=== PATIENT | female | born 1960 | race Caucasian/White ===

== ENCOUNTER 2024-04-27 05:35 | Inpatient (IN) | payer OTHER ==
--- OUTSIDE RECORDS SUMMARY | 2024-04-27 05:41 | XMS REPORT | Continuity of Care Document ---
Author Name Unknown Address [address] [facility] [address] [id number] [facility] Address [address] [facility] [address] [place] [address] Care Team Providers Care Deployment Engineer Name Role Phone Marely GUALLPA, Tomasz Primary Care Physic mattie [phone] EbYecenia Rios Attending Clinician [phone] YECENIA HARTLEY Attending Clinician Unavailable Unknown, Attending Attending Clinician Unavailab ALESSANDRA Barrera Attending Clinician Unavailable Alessandra Powell PA-C Attending Clinician [phone] Unknown, Attending Attending Clinician Unavailab Loulou Loya PTA Attending Clinician Unav Titus Devine MD Attending Clinician [phone] TITUS CANALES Attending Clinician Unavailabl jensen Matos PT, Maria D Attending Clinician Un available Sally Jenkins PTA Attending Clinician Unavail able Yovani PT, Annette Mays Attending Clinician Unavail able Jovany Jenkins PTA Attending Clinician Unavaila lazaro Diaz PTA, Alma Attending Clinician Unavail able Doctor Unassigned, [place] Attending Clinician U Nancy San PT Attending Clinician Unavailab mary ann CHENEYP, Yecenia Attending Clinician [phone] Payers Payer Name Policy Type Policy Number Effective Date Expirati on Date Source [facility] [id number] 2021 00:00:00 Problems Condition Name Condition Details Condition Category Status Onset Date Resolution Date Last Treatment Date Treating Clinician Comments Source No known active problems No known active problems Disease [facility] Allergies, Adverse Reactions, Alerts Allergy Name Allergy Type Status Severity Reaction(s) Onset Date Inactive Date Treating Clinician Comments Source NO KNOWN ALLERGIE S Drug Class Active [facility] Social History Social Habit Start Date Stop Date Quantity Comments [facility] 2024-04-12 00:00:00 2024-04-12 00:00:00 [facility] Exposure to SARS-CoV-2 (event) 2022-11-15 00:00:00 2022-11-25 13:11:00 Not sure [facility] Tobacco use and exposure 2022-01-31 00:00:00 2022-01-31 00:00:00 Smokeless tobacco non-user [facility] Sex assigned at 1960 00:00:00 1960 00:00:00 [facility] Smoking Status Start Date Stop Date Source Never smoked tobacco [facility] Medications Ordered Medication Name Filled Medication Name Start Date Stop Date Current Medication? Ordering Clinician Indication Dosage Frequency Signature (SIG) Comments Components Source metformin 1,000 mg tablet 2023-07 00:00: 00 Yes 1mg Iam Cummings fluconazole 100 mg tablet 02-14 00:00: 00 Yes mg Iam Cummings atorvastati n 40 mg tablet 02-14 00:00: 00 Yes mg Iam Cummings hydrochloro thiazide 50 mg tablet 02-14 00:00: 00 Yes mg Iam Cummings amlodipine 5 mg tablet 02-14 00:00: 00 Yes mg Iam Cummings lisinopril 40 mg tablet 02-14 00:00: 00 Yes mg Iam Cummings Janumet 50 mg-1,000 mg tablet 02-14 00:00: 00 Yes mg Iam Cummings Tresiba FlexTouch U-100 insulin 100 unit/mL (3 mL) subcutaneou s pen 02-14 00:00: 00 Yes (3 mL) Iam Cummings cyanocobala min (vit B-12) 1,000 mcg/mL injection solution - 00:00: 00 Yes mcg/mL Iam Cummings fluconazole 150 mg tablet - 00:00: 00 Yes 1mg Iam Cummings hydrochloro thiazide 50 mg tablet -24 00:00: 00 Yes mg Iam Cummings amlodipine 5 mg tablet -24 00:00: 00 Yes mg Iam Cummings Janumet 50 mg-1,000 mg tablet - 00:00: 00 Yes mg Iam Cummings Tresiba FlexTouch U-100 insulin 100 unit/mL (3 mL) subcutaneou s pen -24 00:00: 00 Yes (3 mL) Iam Cummings cyanocobala min (vit B-12) 1,000 mcg/mL injection solution -24 00:00: 00 Yes mcg/mL Iam Cummings lisinopril 40 mg tablet -16 00:00: 00 Yes mg Iam Cummings fluconazole 100 mg tablet -25 00:00: 00 Yes mg Iam Cummings amlodipine 5 mg tablet 0 -24 00:00: 00 Yes mg Iam Cummings lisinopril 40 mg tablet 0 -24 00:00: 00 Yes mg Iam Cummings cyanocobala min (vit B-12) 1,000 mcg/mL injection solution 0 -17 00:00: 00 Yes mcg/mL Iam Cummings doxycycline monohydrate 100 mg capsule -04 00:00: 00 Yes mg Iam Cummings cyanocobala min (vit B-12) 1,000 mcg/mL injection solution 0 -24 00:00: 00 Yes mcg/mL Iam Cummings cefadroxil 500 mg capsule 0 - 00:00: 00 Yes mg Iam Cummings diazepam 5 mg tablet 0 -21 00:00: 00 Yes mg Iam Cummings mupirocin 2 % topical ointment 0 -21 00:00: 00 Yes % Iam Cummings atorvastati n 40 mg tablet -20 00:00: 00 Yes mg Iam Cummings INJECT 1 ML IM EVERY 2 WEEKS 08-15 00:00: 00 Yes 1000 Iam Cummings INJECT 1MG SQ WEEKLY 08-15 00:00: 00 Yes 43 Iam Cummings TAKE 1 TABLET DAILY. 08-15 00:00: 00 Yes 50 Iam Cummings 50 UNITS SUBCUTANEOU S Q PM AND 25 UNITS Q A.M. 08-15 00:00: 00 Yes 100 Iam Cummings AMLODIPINE BESYLATE 5 MG TABS 08-15 00:00: 00 Yes Iam Cummings APPLY A THIN LAYER TO THE AFFECTED AREAS TWICE DAILY 2022-07 0 00:00: 00 Yes Iam Cummings INJECT 1MG SQ WEEKLY 9 00:00: 00 Yes 43 Iam Cummings TAKE 1 TABLET BID 03-16 00:00: 00 Yes 1000 Iam Cummings TAKE 1 TABLET AT BEDTIME. 03-16 00:00: 00 Yes 40 Iam Cummings INJECT 1 ML IM EVERY 2 WEEKS 03-16 00:00: 00 Yes 1000 Iam Cummings HYDROCHLORO THIAZIDE 50 MG TABS 03-16 00:00: 00 Yes Iam Cummings TRESIBA FLEXTOUCH 100 UNIT/ML SOPN 03-16 00:00: 00 Yes 100 Iam Cummings TAKE 1 TABLET DAILY. 03-16 00:00: 00 Yes 40 Iam Cummings INJECT 0.5 ML SUBCUTANEOU SLY WEEKLY. 03-16 00:00: 00 09-18 00:00 :00 No 2505 Iam Cummings TAKE 1 TABLET DAILY. 02-10 00:00: 00 09-18 00:00 :00 No 40 Iam Cummings JANUMET 50-1000 02-09 00:00: 00 Yes Iam Cummings VICTOZA 18 MG/3ML SOPN 02-09 00:00: 00 Yes 18 Iam Cummings bromphenira mine-pseudo ephedrine-D M (BROMFED DM) 2-30-10 mg/5 mL syrup - 00:00: 00 Yes [id number] 5mL Take 5 mL by mouth 3 (three) times daily as needed for Congestion /Allergies . [facility] fluticasone propionate 50 mcg/actuati on nasal spray 11-25 00:00: 00 Yes [id number] 2{spray } Use 2 Sprays in each nostril in the morning. [facility] cetirizine 10 mg tablet 11-25 00:00: 00 Yes [id number] 10mg Take 1 tablet by mouth in the morning. [facility] TAKE 5 ML BY MOUTH THREE TIMES DAILY NEEDED FOR CONGESTION OR ALLERGIES 11-25 00:00: 00 09-18 00:00 :00 No Iam Cummings FLUTICASONE PROPIONATE 50 MCG/ACT S FLUTICASONE PROPIONATE 50 MCG/ACT S MCFP 11-25 00:00: 00 09-18 00:00 :00 No Iam Cummings AZITHROMYCI N 250 MG TABS 11-25 00:00: 00 09-18 00:00 :00 No Iam Cummings TAKE 1 TABLET BY MOUTH EVERY MORNING 11-25 00:00: 00 09-18 00:00 :00 No Iam Angel Emiliano azithromyci n 250 mg tablet 11-25 00:00: 00 12-01 04:59 :00 No [id number] Take 2 tablets by mouth daily for 1 day, THEN 1 tablet daily for 4 days. [facility] INJECT 0.5 ML SUBCUTANEOU SLY WEEKLY. 11-09 00:00: 00 09-18 00:00 :00 No 2505 Iam Cummings 50 UNITS SUBCUTANEOU S Q PM AND 25 UNITS Q A.M. 11-01 00:00: 00 Yes 100 Iam Cummings QUINAPRIL HCL 40 MG TABS 11-01 00:00: 00 Yes 40 Iam Cummings TAKE 1 TABLET EVERY MORNING. 11-01 00:00: 00 09-18 00:00 :00 No 5 Iam Cummings INJECT 1 ML IM EVERY 2 WEEKS 11-01 00:00: 00 09-18 00:00 :00 No 1000 Iam F Emiliano TAKE 1 TABLET DAILY. 11-01 00:00: 00 09-18 00:00 :00 No 50 Iam F Emiliano TAKE 1 TABLET BID 11-01 00:00: 00 09-18 00:00 :00 No 1000 Iam F Emiliano INJECT 0.5-1MG SQ WEEKLY 11-01 00:00: 00 09-18 00:00 :00 No 4 Iam Angel Cummings INJECT 1 MG UNDER THE SKIN DIRECTED 08-13 00:00: 00 09-18 00:00 :00 No 183 Iamluther Cummings TAKE 1 TABLET TWICE DAILY WITH MEALS. 08-13 00:00: 00 09-18 00:00 :00 No [id number] Iam F Emiliano INSULIN GLARGINE-YF GN 100 UNIT/ML S INSULIN GLARGINE-YF GN 100 UNIT/ML S OPN 08-05 00:00: 00 Yes Iamluther Cummings TAKE 1 TABLET DAILY. 08-05 00:00: 00 09-18 00:00 :00 No 40 Iam Angel Cummings TAKE 1 TABLET EVERY MORNING. 08-05 00:00: 00 09-18 00:00 :00 No 5 Iamluther Cummings INJECT 1 ML IM EVERY 2 WEEKS 08-05 00:00: 00 09-18 00:00 :00 No 1000 Iamluther Cummings TAKE 1 TABLET DAILY. 08-05 00:00: 00 09-18 00:00 :00 No 50 Iam Angel Cummings TAKE 1 TABLET BID 08-05 00:00: 00 09-18 00:00 :00 No 1000 Iam Cummings 25 UNITS QAM, 50 UNITS QHS 08-05 00:00: 00 09-18 00:00 :00 No 100 Iamluther Cummings TAKE 1 TABLET AT BEDTIME. 08-05 00:00: 00 09-18 00:00 :00 No 40 Iam F Emiliano CYANOCOBALA MIN 1000 MCG/ML SOLN -04 00:00: 00 Yes 1000 Iam Cummings 25 UNITS QAM, 50 UNITS QHS 2021-07 00:00: 00 09-18 00:00 :00 No Iam Cummings INJECT 1 ML IM EVERY 2 WEEKS 2021-07 2 00:00: 00 09-18 00:00 :00 No Iam Cummings PENICILLIN V POTASSIUM 500 MG TABS 2021-07 00:00: 00 09-18 00:00 :00 No 500 Iam Cummings QUINAPRIL HCL 40 MG TABS 2021-07 00:00: 00 09-18 00:00 :00 No 40 Iam Cummings OZEMPIC (1 MG/DOSE) 4 MG/3ML SOPN 2021-07 00:00: 00 09-18 00:00 :00 No 4 Iam Cummings FLUOROURACI L 5 % CREA 2021-07 00:00: 00 09-18 00:00 :00 No Iam Cummings Dose Unknown 2021-07 00:00: 00 Yes Iam Cummings VALACYCLOVI R HCL 1 GM TABS 2021-07 00:00: 00 Yes Iam Cummings ATORVASTATI N CALCIUM 40 MG TABS 2021-07 00:00: 00 09-18 00:00 :00 No Iam Cummings CYANOCOBALA MIN 1000 MCG/ML SOLN 2021-07 00:00: 00 09-18 00:00 :00 No Iam Cummings AMLODIPINE BESYLATE 5 MG TABS 2021-07- 00:00: 00 09-18 00:00 :00 No Iam Cummings APPLY TO AFFECTED AREAS TWICE DAILY FOR 2 - 3 WEEKS 2021-07- 00:00: 00 09-18 00:00 :00 No Iam Cummings TIZANIDINE HCL 4 MG TABS 2021-07 2-14 00:00: 00 09-18 00:00 :00 No Iam Cummings Dose Unknown 2021-07 2 00:00: 00 09-18 00:00 :00 No Iam Cummings PENICILLIN VK 500MG TABLETS 2021-07 2-14 00:00: 00 09-18 00:00 :00 No Iam Cummings TAKE 1 TABLET BID 2021-07 0-26 00:00: 00 09-18 00:00 :00 No 1000 Iam Cummings TAKE 1 TABLET AT BEDTIME. 04-14 00:00: 00 09-18 00:00 :00 No 40 Iam Cummings QUINAPRIL HCL 40 MG TABS 04-14 00:00: 00 09-18 00:00 :00 No 40 Iam Cummings liraglutide (VICTOZA 3-ROSANA SC) 01-31 11:57: 19 Yes inject under the skin. [facility] valACYclovi r (VALTREX) 1 gram tablet 01-31 00:00: 00 02-08 04:59 :00 No [id number] 1g Take 1 tablet by mouth in the morning and 1 tablet at noon and 1 tablet in the evening. Do all this for 7 days. [facility] Victoza 2-Rosana 0.6 mg/0.1 mL (18 mg/3 mL) subcutaneou s pen injector 01-28 00:00: 00 Yes (18 mg/3 mL) Iam Cummings Lantus Solostar U-100 Insulin 100 unit/mL (3 mL) subcutaneou s pen 01-28 00:00: 00 Yes (3 mL) Iam Cummings hydrochloro thiazide 50 mg tablet 01-28 00:00: 00 Yes 1mg Iam Cummings amlodipine 5 mg tablet 01-28 00:00: 00 Yes 1mg Iam Cummings atorvastati n 40 mg tablet 01-28 00:00: 00 Yes 1mg Iam Cummings quinapril 40 mg tablet 01-28 00:00: 00 Yes 1mg Iam Cummings Glumetza 1,000 mg tablet,exte nded release 01-28 00:00: 00 Yes 1mg Iam Cummings duloxetine 30 mg capsule,del ayed release 01-28 00:00: 00 Yes 1mg Iam Cummings cyanocobala min (vit B-12) 1,000 mcg/mL injection solution 01-28 00:00: 00 Yes 1mcg/mL Iam Cummings Victoza 2-Rosana 0.6 mg/0.1 mL (18 mg/3 mL) subcutaneou s pen injector 01-28 00:00: 00 No (18 mg/3 mL) Lantus Solostar U-100 Insulin 100 unit/mL (3 mL) subcutaneou s pen 01-28 00:00: 00 No (3 mL) hydrochloro thiazide 50 mg tablet 01-28 00:00: 00 No 1mg amlodipine 5 mg tablet 01-28 00:00: 00 No 1mg atorvastati n 40 mg tablet 01-28 00:00: 00 No 1mg quinapril 40 mg tablet 01-28 00:00: 00 No 1mg Glumetza 1,000 mg tablet,exte nded release 01-28 00:00: 00 No 1mg Dose Unknown 01-28 00:00: 00 No cyanocobala min (vit B-12) 1,000 mcg/mL injection solution 01-28 00:00: 00 No 1mcg/mL diclofenac 50 mg EC tablet 01-14 00:00: 00 Yes 50mg Take 50 mg by mouth every 8 (eight) hours as needed. [facility] TIZANIDINE HCL 4 MG TABS 01-14 00:00: 00 Yes 4 Iam Cummings Victoza 2-Rosana 0.6 mg/0.1 mL (18 mg/3 mL) subcutaneou s pen injector 01-08 00:00: 00 Yes (18 mg/3 mL) Iam Cummings Lantus Solostar U-100 Insulin 100 unit/mL (3 mL) subcutaneou s pen 01-08 00:00: 00 Yes (3 mL) Iam Cummings atorvastati n 40 mg tablet 01-08 00:00: 00 Yes 1mg Iam Cummings amlodipine 5 mg tablet 01-08 00:00: 00 Yes 1mg Iam Cummings hydrochloro thiazide 50 mg tablet 01-08 00:00: 00 Yes 1mg Iam Cummings quinapril 40 mg tablet 01-08 00:00: 00 Yes 1mg Iam Cummings Victoza 2-Rosana 0.6 mg/0.1 mL (18 mg/3 mL) subcutaneou s pen injector 01-08 00:00: 00 No (18 mg/3 mL) Lantus Solostar U-100 Insulin 100 unit/mL (3 mL) subcutaneou s pen 01-08 00:00: 00 No (3 mL) atorvastati n 40 mg tablet 01-08 00:00: 00 No 1mg amlodipine 5 mg tablet 01-08 00:00: 00 No 1mg hydrochloro thiazide 50 mg tablet 01-08 00:00: 00 No 1mg quinapril 40 mg tablet 01-08 00:00: 00 No 1mg Dose Unknown 01-08 00:00: 00 No Lantus Solostar U-100 Insulin 100 unit/mL (3 mL) subcutaneou s pen 01-08 00:00: 00 No (3 mL) atorvastati n 40 mg tablet 01-08 00:00: 00 No 1mg amlodipine 5 mg tablet 01-08 00:00: 00 No 1mg hydrochloro thiazide 50 mg tablet 01-08 00:00: 00 No 1mg quinapril 40 mg tablet 01-08 00:00: 00 No 1mg cyanocobala min 1,000 mcg/mL injection 01-07 00:00: 00 Yes Danielle leggett [facility] duloxetine 30 mg capsule,del ayed release 11-10 00:00: 00 Yes 1mg Iam Cummings duloxetine 30 mg capsule,del ayed release 2022-0 4-26 00:00: 00 No 1mg Dose Unknown 0 4- 00:00: 00 No Dose Unknown 0 4-06 00:00: 00 Yes Iam Cummings Dose Unknown 0 4-06 00:00: 00 Yes Iam Cummings Dose Unknown 0 4-06 00:00: 00 No Dose Unknown 0 4-06 00:00: 00 No Dose Unknown 0 4-06 00:00: 00 No Dose Unknown 0 4-06 00:00: 00 No Dose Unknown 0 3- 00:00: 00 Yes Iam Cummings Dose Unknown 0 3- 00:00: 00 Yes Iam Cummings Dose Unknown 0 3 00:00: 00 No Dose Unknown 0 3- 00:00: 00 No Dose Unknown 0 3 00:00: 00 No Dose Unknown 0 3- 00:00: 00 No Victoza 2-Rosana 0.6 mg/0.1 mL (18 mg/3 mL) subcutaneou s pen injector 0 10-06 00:00: 00 Yes (18 mg/3 mL) Iam Cummings quinapril 40 mg tablet 0 10-06 00:00: 00 Yes 1mg Iam Cummings hydrochloro thiazide 50 mg tablet 0 10-06 00:00: 00 Yes 1mg Iam Cummings amlodipine 5 mg tablet 0 10-06 00:00: 00 Yes 1mg Iam Cummings atorvastati n 40 mg tablet 10-06 00:00: 00 Yes 1mg Iam Cummings Glumetza 1,000 mg tablet,exte nded release 10-06 00:00: 00 Yes 1mg Iam Cummings Dose Unknown 0 10-06 00:00: 00 Yes Iam Cummings Victoza 2-Rosana 0.6 mg/0.1 mL (18 mg/3 mL) subcutaneou s pen injector 0 - 00:00: 00 No (18 mg/3 mL) quinapril 40 mg tablet 0 3- 00:00: 00 No 1mg hydrochloro thiazide 50 mg tablet 10-06 00:00: 00 No 1mg amlodipine 5 mg tablet 10-06 00:00: 00 No 1mg atorvastati n 40 mg tablet 10-06 00:00: 00 No 1mg Glumetza 1,000 mg tablet,exte nded release 10-06 00:00: 00 No 1mg Dose Unknown 10-06 00:00: 00 No Victoza 2-Rosana 0.6 mg/0.1 mL (18 mg/3 mL) subcutaneou s pen injector 10-06 00:00: 00 No (18 mg/3 mL) quinapril 40 mg tablet 10-06 00:00: 00 No 1mg hydrochloro thiazide 50 mg tablet 10-06 00:00: 00 No 1mg amlodipine 5 mg tablet 10-06 00:00: 00 No 1mg atorvastati n 40 mg tablet 10-06 00:00: 00 No 1mg Glumetza 1,000 mg tablet,exte nded release 10-06 00:00: 00 No 1mg Dose Unknown 10-06 00:00: 00 No Glumetza 1,000 mg tablet,exte nded release 07-23 00:00: 00 Yes 1mg Iam F Emiliano diclofenac sodium 75 mg tablet,isis yed release - 00:00: 00 Yes 1mg Iam F Emiliano tizanidine 4 mg capsule - 00:00: 00 Yes 1mg Iam F Emiliano duloxetine 30 mg capsule,del ayed release - 00:00: 00 Yes 1mg Iam F Emiliano Glumetza 1,000 mg tablet,exte nded release - 00:00: 00 No 1mg diclofenac sodium 75 mg tablet,isis yed release - 00:00: 00 No 1mg tizanidine 4 mg capsule 0 1- 00:00: 00 No 1mg duloxetine 30 mg capsule,del ayed release - 00:00: 00 No 1mg Glumetza 1,000 mg tablet,exte nded release 07-23 00:00: 00 No 1mg diclofenac sodium 75 mg tablet,isis yed release 07-23 00:00: 00 No 1mg tizanidine 4 mg capsule 07-23 00:00: 00 No 1mg duloxetine 30 mg capsule,del ayed release 07-23 00:00: 00 No 1mg Victoza 2-Rosana 0.6 mg/0.1 mL (18 mg/3 mL) subcutaneou s pen injector 2020-07 00:00: 00 Yes (18 mg/3 mL) Iam Cummings Victoza 2-Rosana 0.6 mg/0.1 mL (18 mg/3 mL) subcutaneou s pen injector 2020-07 00:00: 00 No (18 mg/3 mL) Victoza 2-Rosana 0.6 mg/0.1 mL (18 mg/3 mL) subcutaneou s pen injector 2020-07 00:00: 00 No (18 mg/3 mL) Victoza 2-Rosana 0.6 mg/0.1 mL (18 mg/3 mL) subcutaneou s pen injector 04-07 00:00: 00 Yes (18 mg/3 mL) Iam Cummings Lantus Solostar U-100 Insulin 100 unit/mL (3 mL) subcutaneou s pen 04-07 00:00: 00 Yes (3 mL) Iam Cummings Dose Unknown 04-07 00:00: 00 Yes Iam Cummings Dose Unknown 04-07 00:00: 00 Yes Iam Cummings Dose Unknown 04-07 00:00: 00 Yes Iam Cummings Dose Unknown 04-07 00:00: 00 Yes Iam Cummings metformin ER 1,000 mg 24 hr tablet,exte nded release (gastric) 04-07 00:00: 00 Yes 1mg Iam Cummings cyanocobala min (vit B-12) 1,000 mcg/mL injection solution 04-07 00:00: 00 Yes 1mcg/mL Iam Cummings Victoza 2-Rosana 0.6 mg/0.1 mL (18 mg/3 mL) subcutaneou s pen injector 04-07 00:00: 00 No (18 mg/3 mL) Lantus Solostar U-100 Insulin 100 unit/mL (3 mL) subcutaneou s pen 04-07 00:00: 00 No (3 mL) Dose Unknown 04-07 00:00: 00 No Dose Unknown 04-07 00:00: 00 No Dose Unknown 04-07 00:00: 00 No Dose Unknown 04-07 00:00: 00 No metformin ER 1,000 mg 24 hr tablet,exte nded release (gastric) 04-07 00:00: 00 No 1mg cyanocobala min (vit B-12) 1,000 mcg/mL injection solution 04-07 00:00: 00 No 1mcg/mL Victoza 2-Rosana 0.6 mg/0.1 mL (18 mg/3 mL) subcutaneou s pen injector 04-07 00:00: 00 No (18 mg/3 mL) Lantus Solostar U-100 Insulin 100 unit/mL (3 mL) subcutaneou s pen 04-07 00:00: 00 No (3 mL) Dose Unknown 04-07 00:00: 00 No Dose Unknown 04-07 00:00: 00 No Dose Unknown 04-07 00:00: 00 No Dose Unknown 04-07 00:00: 00 No metformin ER 1,000 mg 24 hr tablet,exte nded release (gastric) 04-07 00:00: 00 No 1mg cyanocobala min (vit B-12) 1,000 mcg/mL injection solution 04-07 00:00: 00 No 1mcg/mL Trulicity 1.5 mg/0.5 mL subcutaneou s pen injector 02-12 00:00: 00 Yes 1mg/0.5 mL Iam Cummings Trulicity 1.5 mg/0.5 mL subcutaneou s pen injector 02-12 00:00: 00 No 1mg/0.5 mL Trulicity 1.5 mg/0.5 mL subcutaneou s pen injector 02-12 00:00: 00 No 1mg/0.5 mL Victoza 2-Rosana 0.6 mg/0.1 mL (18 mg/3 mL) subcutaneou s pen injector 02-04 00:00: 00 Yes (18 mg/3 mL) Iam Cummings Victoza 2-Rosana 0.6 mg/0.1 mL (18 mg/3 mL) subcutaneou s pen injector 02-04 00:00: 00 No (18 mg/3 mL) Victoza 2-Roasna 0.6 mg/0.1 mL (18 mg/3 mL) subcutaneou s pen injector 02-04 00:00: 00 No (18 mg/3 mL) ketoconazol e 2 % topical cream 01-06 00:00: 00 Yes 1% Iam Cummings Dose Unknown 01-06 00:00: 00 Yes Iam Cummings quinapril 40 mg tablet 01-06 00:00: 00 Yes 1mg Iam Cummings hydrochloro thiazide 50 mg tablet 01-06 00:00: 00 Yes 1mg Iam Cummings atorvastati n 40 mg tablet 01-06 00:00: 00 Yes 1mg Ima Cummings metformin 1,000 mg tablet 01-06 00:00: 00 Yes 1mg Iam Cummings cyanocobala min (vit B-12) 1,000 mcg/mL injection solution 01-06 00:00: 00 Yes 1mcg/mL Iam Cummings ketoconazol e 2 % topical cream 01-06 00:00: 00 No 1% Dose Unknown 01-06 00:00: 00 No quinapril 40 mg tablet 01-06 00:00: 00 No 1mg hydrochloro thiazide 50 mg tablet 01-06 00:00: 00 No 1mg atorvastati n 40 mg tablet 01-06 00:00: 00 No 1mg metformin 1,000 mg tablet 01-06 00:00: 00 No 1mg cyanocobala min (vit B-12) 1,000 mcg/mL injection solution 01-06 00:00: 00 No 1mcg/mL ketoconazol e 2 % topical cream 01-06 00:00: 00 No 1% Dose Unknown 01-06 00:00: 00 No quinapril 40 mg tablet 01-06 00:00: 00 No 1mg hydrochloro thiazide 50 mg tablet 01-06 00:00: 00 No 1mg atorvastati n 40 mg tablet 01-06 00:00: 00 No 1mg metformin 1,000 mg tablet 01-06 00:00: 00 No 1mg cyanocobala min (vit B-12) 1,000 mcg/mL injection solution 01-06 00:00: 00 No 1mcg/mL Lantus Solostar U-100 Insulin 100 unit/mL (3 mL) subcutaneou s pen 10-22 00:00: 00 Yes (3 mL) Iam Cummings Lantus Solostar U-100 Insulin 100 unit/mL (3 mL) subcutaneou s pen 10-22 00:00: 00 No (3 mL) Lantus Solostar U-100 Insulin 100 unit/mL (3 mL) subcutaneou s pen 10-22 00:00: 00 No (3 mL) Trulicity 1.5 mg/0.5 mL subcutaneou s pen injector 10-20 00:00: 00 Yes 1mg/0.5 mL Iam Cummings Lantus Solostar U-100 Insulin 100 unit/mL (3 mL) subcutaneou s pen 10-20 00:00: 00 Yes (3 mL) Iam Angel Emiliano atorvastati n 40 mg tablet 10-20 00:00: 00 Yes 1mg Iam Cummings hydrochloro thiazide 50 mg tablet 10-20 00:00: 00 Yes 1mg Iam Cummings amlodipine 5 mg tablet 10-20 00:00: 00 Yes 1mg Iam Cummings quinapril 40 mg tablet 10-20 00:00: 00 Yes 1mg Iam Cummings metformin 1,000 mg tablet 10-20 00:00: 00 Yes 1mg Iam Cummings cyanocobala min (vit B-12) 1,000 mcg/mL injection solution 10-20 00:00: 00 Yes 1mcg/mL Iam Cummings Trulicity 1.5 mg/0.5 mL subcutaneou s pen injector 10-20 00:00: 00 No 1mg/0.5 mL Lantus Solostar U-100 Insulin 100 unit/mL (3 mL) subcutaneou s pen 10-20 00:00: 00 No (3 mL) atorvastati n 40 mg tablet 10-20 00:00: 00 No 1mg hydrochloro thiazide 50 mg tablet 10-20 00:00: 00 No 1mg amlodipine 5 mg tablet 10-20 00:00: 00 No 1mg quinapril 40 mg tablet 10-20 00:00: 00 No 1mg metformin 1,000 mg tablet 10-20 00:00: 00 No 1mg cyanocobala min (vit B-12) 1,000 mcg/mL injection solution 10-20 00:00: 00 No 1mcg/mL Trulicity 1.5 mg/0.5 mL subcutaneou s pen injector 10-20 00:00: 00 No 1mg/0.5 mL Lantus Solostar U-100 Insulin 100 unit/mL (3 mL) subcutaneou s pen 10-20 00:00: 00 No (3 mL) atorvastati n 40 mg tablet 10-20 00:00: 00 No 1mg hydrochloro thiazide 50 mg tablet 10-20 00:00: 00 No 1mg amlodipine 5 mg tablet 10-20 00:00: 00 No 1mg quinapril 40 mg tablet 10-20 00:00: 00 No 1mg metformin 1,000 mg tablet 10-20 00:00: 00 No 1mg cyanocobala min (vit B-12) 1,000 mcg/mL injection solution 10-20 00:00: 00 No 1mcg/mL cyanocobala min (vit B-12) 1,000 mcg/mL injection solution 07-28 00:00: 00 Yes 1mcg/mL Iam Cummings cyanocobala min (vit B-12) 1,000 mcg/mL injection solution 07-28 00:00: 00 No 1mcg/mL cyanocobala min (vit B-12) 1,000 mcg/mL injection solution 07-28 00:00: 00 No 1mcg/mL Trulicity 1.5 mg/0.5 mL subcutaneou s pen injector 07-25 00:00: 00 Yes 1mg/0.5 mL Iam Cummings Lantus Solostar U-100 Insulin 100 unit/mL (3 mL) subcutaneou s pen 07-25 00:00: 00 Yes (3 mL) Iam Cummings amlodipine 5 mg tablet 07-25 00:00: 00 Yes 1mg Iam Cummings hydrochloro thiazide 50 mg tablet 07-25 00:00: 00 Yes 1mg Iam Cummings atorvastati n 40 mg tablet 07-25 00:00: 00 Yes 1mg Iam Cummings quinapril 40 mg tablet 07-25 00:00: 00 Yes 1mg Iam Cummings metformin 1,000 mg tablet 07-25 00:00: 00 Yes 1mg Iam Cummings Trulicity 1.5 mg/0.5 mL subcutaneou s pen injector 07-25 00:00: 00 No 1mg/0.5 mL Lantus Solostar U-100 Insulin 100 unit/mL (3 mL) subcutaneou s pen 07-25 00:00: 00 No (3 mL) amlodipine 5 mg tablet 07-25 00:00: 00 No 1mg hydrochloro thiazide 50 mg tablet 07-25 00:00: 00 No 1mg atorvastati n 40 mg tablet 07-25 00:00: 00 No 1mg quinapril 40 mg tablet 07-25 00:00: 00 No 1mg metformin 1,000 mg tablet 07-25 00:00: 00 No 1mg Trulicity 1.5 mg/0.5 mL subcutaneou s pen injector 07-25 00:00: 00 No 1mg/0.5 mL Lantus Solostar U-100 Insulin 100 unit/mL (3 mL) subcutaneou s pen 07-25 00:00: 00 No (3 mL) amlodipine 5 mg tablet 07-25 00:00: 00 No 1mg hydrochloro thiazide 50 mg tablet 07-25 00:00: 00 No 1mg atorvastati n 40 mg tablet 07-25 00:00: 00 No 1mg quinapril 40 mg tablet 07-25 00:00: 00 No 1mg metformin 1,000 mg tablet 07-25 00:00: 00 No 1mg Lantus Solostar U-100 Insulin 100 unit/mL (3 mL) subcutaneou s pen 2019-07 00:00: 00 Yes (3 mL) Iam Cummings Lantus Solostar U-100 Insulin 100 unit/mL (3 mL) subcutaneou s pen 2019-07 00:00: 00 No (3 mL) Lantus Solostar U-100 Insulin 100 unit/mL (3 mL) subcutaneou s pen 2019-07 00:00: 00 No (3 mL) Lantus Solostar U-100 Insulin 100 unit/mL (3 mL) subcutaneou s pen 2019-07 00:00: 00 Yes (3 mL) Iam Cummings ketoconazol e 2 % topical cream 2019-07 00:00: 00 Yes 1% Iam Cummings quinapril 40 mg tablet 2019-07 00:00: 00 Yes 1mg Iam Cummings atorvastati n 40 mg tablet 2019-07 00:00: 00 Yes 1mg Iam Cummings hydrochloro thiazide 50 mg tablet 2019-07 00:00: 00 Yes 1mg Iam Cummings amlodipine 5 mg tablet 2019-07 00:00: 00 Yes 1mg Iam Cummings metformin 1,000 mg tablet 2019-07 00:00: 00 Yes 1mg Iam Cummings Lantus Solostar U-100 Insulin 100 unit/mL (3 mL) subcutaneou s pen 2019-07 00:00: 00 No (3 mL) ketoconazol e 2 % topical cream 2019-07 00:00: 00 No 1% Lantus Solostar U-100 Insulin 100 unit/mL (3 mL) subcutaneou s pen 2019-07 00:00: 00 No (3 mL) ketoconazol e 2 % topical cream 2019-07 00:00: 00 No 1% quinapril 40 mg tablet 2019-07 00:00: 00 No 1mg atorvastati n 40 mg tablet 2019-07 00:00: 00 No 1mg hydrochloro thiazide 50 mg tablet 2019-07 00:00: 00 No 1mg quinapril 40 mg tablet 2019-07 00:00: 00 No 1mg amlodipine 5 mg tablet 2019-07 00:00: 00 No 1mg metformin 1,000 mg tablet 2019-07 00:00: 00 No 1mg atorvastati n 40 mg tablet 2019-07 00:00: 00 No 1mg hydrochloro thiazide 50 mg tablet 2019-07 00:00: 00 No 1mg amlodipine 5 mg tablet 2019-07 00:00: 00 No 1mg metformin 1,000 mg tablet 2019-07 00:00: 00 No 1mg Trulicity 1.5 mg/0.5 mL subcutaneou s pen injector 04-15 00:00: 00 Yes 1mg/0.5 mL Iam Cummings Lantus Solostar U-100 Insulin 100 unit/mL (3 mL) subcutaneou s pen 04-15 00:00: 00 Yes (3 mL) Iam Cummings ketoconazol e 2 % topical cream 04-15 00:00: 00 Yes 1% Iam Cummings quinapril 40 mg tablet 04-15 00:00: 00 Yes 1mg Iam Cummings atorvastati n 40 mg tablet 04-15 00:00: 00 Yes 1mg Iam Cummings hydrochloro thiazide 50 mg tablet 04-15 00:00: 00 Yes 1mg Iam Cummings amlodipine 5 mg tablet 04-15 00:00: 00 Yes 1mg Iam Cummings metformin 1,000 mg tablet 04-15 00:00: 00 Yes 1mg Iam Cummings Trulicity 1.5 mg/0.5 mL subcutaneou s pen injector 04-15 00:00: 00 No 1mg/0.5 mL Lantus Solostar U-100 Insulin 100 unit/mL (3 mL) subcutaneou s pen 04-15 00:00: 00 No (3 mL) ketoconazol e 2 % topical cream 04-15 00:00: 00 No 1% quinapril 40 mg tablet 04-15 00:00: 00 No 1mg atorvastati n 40 mg tablet 04-15 00:00: 00 No 1mg hydrochloro thiazide 50 mg tablet 04-15 00:00: 00 No 1mg amlodipine 5 mg tablet 04-15 00:00: 00 No 1mg metformin 1,000 mg tablet 04-15 00:00: 00 No 1mg Trulicity 1.5 mg/0.5 mL subcutaneou s pen injector 04-15 00:00: 00 No 1mg/0.5 mL Lantus Solostar U-100 Insulin 100 unit/mL (3 mL) subcutaneou s pen 04-15 00:00: 00 No (3 mL) ketoconazol e 2 % topical cream 04-15 00:00: 00 No 1% quinapril 40 mg tablet 04-15 00:00: 00 No 1mg atorvastati n 40 mg tablet 04-15 00:00: 00 No 1mg hydrochloro thiazide 50 mg tablet 04-15 00:00: 00 No 1mg amlodipine 5 mg tablet 04-15 00:00: 00 No 1mg metformin 1,000 mg tablet 04-15 00:00: 00 No 1mg Trulicity 1.5 mg/0.5 mL subcutaneou s pen injector 10-09 00:00: 00 Yes 1mg/0.5 mL Iam Cummings Lantus Solostar U-100 Insulin 100 unit/mL (3 mL) subcutaneou s pen 10-09 00:00: 00 Yes (3 mL) Iam Cummings ketoconazol e 2 % topical cream 10-09 00:00: 00 Yes 1% Iam Cummings quinapril 40 mg tablet 10-09 00:00: 00 Yes 1mg Iam Cummings atorvastati n 40 mg tablet 10-09 00:00: 00 Yes 1mg Iam Cummings hydrochloro thiazide 50 mg tablet 10-09 00:00: 00 Yes 1mg Iam Cummings amlodipine 5 mg tablet 10-09 00:00: 00 Yes 1mg Iam Cummings Dose Unknown 10-09 00:00: 00 Yes Iam Cummings Levsin/SL 0.125 mg sublingual tablet 10-09 00:00: 00 Yes 1mg Iam Cummings metformin 1,000 mg tablet 10-09 00:00: 00 Yes 1mg Iam Cummings Dose Unknown 10-09 00:00: 00 No Levsin/SL 0.125 mg sublingual tablet 10-09 00:00: 00 No 1mg metformin 1,000 mg tablet 10-09 00:00: 00 No 1mg Trulicity 1.5 mg/0.5 mL subcutaneou s pen injector 10-09 00:00: 00 No 1mg/0.5 mL Lantus Solostar U-100 Insulin 100 unit/mL (3 mL) subcutaneou s pen 10-09 00:00: 00 No (3 mL) ketoconazol e 2 % topical cream 10-09 00:00: 00 No 1% quinapril 40 mg tablet 10-09 00:00: 00 No 1mg atorvastati n 40 mg tablet 10-09 00:00: 00 No 1mg hydrochloro thiazide 50 mg tablet 10-09 00:00: 00 No 1mg amlodipine 5 mg tablet 10-09 00:00: 00 No 1mg Dose Unknown 10-09 00:00: 00 No Levsin/SL 0.125 mg sublingual tablet 10-09 00:00: 00 No 1mg metformin 1,000 mg tablet 10-09 00:00: 00 No 1mg Trulicity 1.5 mg/0.5 mL subcutaneou s pen injector 10-09 00:00: 00 No 1mg/0.5 mL Lantus Solostar U-100 Insulin 100 unit/mL (3 mL) subcutaneou s pen 10-09 00:00: 00 No (3 mL) ketoconazol e 2 % topical cream 10-09 00:00: 00 No 1% quinapril 40 mg tablet 10-09 00:00: 00 No 1mg atorvastati n 40 mg tablet 10-09 00:00: 00 No 1mg hydrochloro thiazide 50 mg tablet 10-09 00:00: 00 No 1mg amlodipine 5 mg tablet 10-09 00:00: 00 No 1mg MELOXICAM 7.5 mg tablet 08-26 00:00: 00 Yes TAKE 1 TABLET BY MOUTH DAILY [facility] amLODIPine 5 mg tablet 2016-07 00:00: 00 Yes [facility] hydroCHLORO thiazide 50 mg tablet 2016-07 00:00: 00 Yes [facility] lovastatin 20 mg tablet 2016-07 00:00: 00 Yes [facility] TRULICITY 1.5 mg/0.5 mL PnIj 2016-07 00:00: 00 Yes [facility] metFORMIN 1,000 mg tablet 2016-07 00:00: 00 Yes [facility] quinapril 40 mg tablet 2016-07 0-12 00:00: 00 Yes [facility] LANTUS SOLOSTAR 100 unit/mL (3 mL) injection 2016-07 0-05 00:00: 00 Yes [facility] Immunizations Ordered Immunization Name Filled Immunization Name Date Status Comments Source Comirnaty 12+ () Comirnaty 12+ () 2023-05-16 00:00:00 Garth Cummings influenza, seasonal vaccine, quadrivalent, adjuvanted, .5mL dose, preservative-free influenza, seasonal vaccine, quadrivalent, adjuvanted, .5mL dose, preservative-free 2023-04-11 00:00:00 Garth Cummings pneumococcal polysacchar pneumococcal polysacchar 2022-08-21 00:00:00 Completed Iam Cummings SHINGRIX VACCINE SHINGRIX VACCINE 2022-08-21 00:00:00 Garth Cummings SHINGRIX VACCINE SHINGRIX VACCINE 2022-04-16 00:00:00 Garth Cummings Influenza, seasonal, inj Influenza, seasonal, inj 2021-04-27 00:00:00 Completed Iam Cummings Moderna COVID-19 Vaccine Moderna COVID-19 Vaccine 2021-04-08 00:00:00 Garth Cummings Moderna COVID-19 Vaccine 2021-04-08 00:00:00 Completed Moderna COVID-19 Vaccine 2021-04-08 00:00:00 Completed Moderna COVID-19 Vaccine Moderna COVID-19 Vaccine 2020-09-13 00:00:00 Garth Cummings Moderna COVID-19 Vaccine 2020-09-13 00:00:00 Completed Moderna COVID-19 Vaccine 2020-09-13 00:00:00 Completed Moderna COVID-19 Vaccine Moderna COVID-19 Vaccine 2020-08-16 00:00:00 Garth Cummings Moderna COVID-19 Vaccine 2020-08-16 00:00:00 Completed Moderna COVID-19 Vaccine 2020-08-16 00:00:00 Completed Influenza, seasonal, inj Influenza, seasonal, inj 2020-05-10 00:00:00 Garth Cummings Influenza, seasonal, inj 2020-05-10 00:00:00 Completed Influenza, seasonal, inj 2020-05-10 00:00:00 Completed Vital Signs Vital Name Observation Time Observation Value Debbie macario Systolic blood pressure 2024-04-12 18:13:00 176 mm[Hg] [facility] [place] Diastolic blood pressure 2024-04-12 18:13:00 81 mm[Hg] [facility] Heart rate 2024-04-12 18:12:00 88 /min [facility] Body temperature 2024-04-12 18:12:00 36.78 Rivka [facility] Respiratory rate 2024-04-12 18:12:00 20 /min [facility] Body height 2024-04-12 18:12:00 167.6 cm [facility] Body weight 2024-04-12 18:12:00 103.239 kg [facility] BMI 2024-04-12 18:12:00 36.74 kg/m2 [facility] Oxygen saturation in Arterial blood by Pulse oximetry 2024-04-12 18:12:00 100 /min [facility] Systolic blood pressure 2022-11-25 18:29:00 143 mm[Hg] [facility] Diastolic blood pressure 2022-11-25 18:29:00 80 mm[Hg] [facility] Oxygen saturation in Arterial blood by Pulse oximetry 2022-11-25 18:29:00 94 /min [facility] Heart rate 2022-11-25 18:26:00 61 /min [facility] Body temperature 2022-11-25 18:26:00 36.78 [place]ka [facility] Respiratory rate 2022-11-25 18:26:00 16 /min [facility] Body height 2022-11-25 18:26:00 167.6 cm [facility] Body weight 2022-11-25 18:26:00 95.301 kg [facility] BMI 2022-11-25 18:26:00 33.91 kg/m2 [facility] Systolic blood pressure 2022-01-31 16:55:00 172 mm[Hg] [facility] Diastolic blood pressure 2022-01-31 16:55:00 83 mm[Hg] [facility] Heart rate 2022-01-31 16:54:00 69 /min [facility] Body temperature 2022-01-31 16:54:00 37.22 Rivka [facility] Respiratory rate 2022-01-31 16:54:00 16 /min [facility] Body height 2022-01-31 16:54:00 167.6 cm [facility] Body weight 2022-01-31 16:54:00 98.975 kg [facility] BMI 2022-01-31 16:54:00 35.22 kg/m2 [facility] Oxygen saturation in Arterial blood by Pulse oximetry 2022-01-31 16:54:00 98 /min [facility] BP Systolic 2024-04-18 10:17:00 177 mm[Hg] Step hen F Emiliano BP Diastolic 2024-04-18 10:17:00 77 mm[Hg] Prasad phen F Emiliano Weight Measured 2024-04-18 10:17:00 227.60 pounds Iam Cummings Height Measured 2024-04-18 10:17:00 66.20 inches Iam Cummings Body Temperature 2024-04-18 10:17:00 97.90 degrees Iam F Emiliano Heart Rate 2024-04-18 10:17:00 90.00 /min Kaylie en F Emiliano Respiratory Rate 2024-04-18 10:17:00 Iam Angel Emiliano BP Systolic 2024-02-15 13:30:00 139 mm[Hg] Step hen F Emiliano BP Diastolic 2024-02-15 13:30:00 74 mm[Hg] Prasad phen F Emiliano Weight Measured 2024-02-15 13:30:00 221.80 pounds Iam Angel Cummings Height Measured 2024-02-15 13:30:00 66.20 inches Iam Angel Cummings Body Temperature 2024-02-15 13:30:00 97.40 degrees Iam F Emiliano Heart Rate 2024-02-15 13:30:00 72.00 /min Kaylie en F Emiliano Respiratory Rate 2024-02-15 13:30:00 Iam F Emiliano BP Systolic 2023-08-15 13:19:00 160 mm[Hg] Step hen F Emiliano BP Diastolic 2023-08-15 13:19:00 75 mm[Hg] Prasad phen F Emiliano Weight Measured 2023-08-15 13:19:00 219.80 pounds Iam F Emiliano Height Measured 2023-08-15 13:19:00 66.20 inches Iam F Emiliano Body Temperature 2023-08-15 13:19:00 97.60 degrees Iam F Emiliano Heart Rate 2023-08-15 13:19:00 72.00 /min Kaylie en F Emiliano Respiratory Rate 2023-08-15 13:19:00 Iam F Emiliano BP Systolic 2023-04-11 14:52:00 158 mm[Hg] Step hen F Emiliano BP Diastolic 2023-04-11 14:52:00 76 mm[Hg] Prasad phen F Emiliano Weight Measured 2023-04-11 14:52:00 217.40 pounds Iam F Emiliano Height Measured 2023-04-11 14:52:00 66.20 inches Iam F Emiliano Body Temperature 2023-04-11 14:52:00 98.20 degrees Iam F Emiliano Heart Rate 2023-04-11 14:52:00 67.00 /min Kaylie en F Emiliano Respiratory Rate 2023-04-11 14:52:00 Iam F Emiliano BP Systolic 2023-03-17 09:31:00 171 mm[Hg] Step hen F Emiliano BP Diastolic 2023-03-17 09:31:00 69 mm[Hg] Prasad phen F Emiliano Weight Measured 2023-03-17 09:31:00 218.60 pounds Iam F Emiliano Height Measured 2023-03-17 09:31:00 66.20 inches Iam F Emiliano Body Temperature 2023-03-17 09:31:00 98.20 degrees Iam F Emiliano Heart Rate 2023-03-17 09:31:00 63.00 /min Kaylie en F Emiliano Respiratory Rate 2023-03-17 09:31:00 Iam F Emiliano BP Systolic 2023-03-16 12:10:00 Step hen F Emiliano BP Diastolic 2023-03-16 12:10:00 Prasad phen F Emiliano Weight Measured 2023-03-16 12:10:00 219.40 pounds Iam F Emiliano Height Measured 2023-03-16 12:10:00 66.20 inches Iam F Emiliano Body Temperature 2023-03-16 12:10:00 Iam F Emiliano Heart Rate 2023-03-16 12:10:00 Kaylie en F Emiliano Respiratory Rate 2023-03-16 12:10:00 Iam F Emiliano BP Systolic 2023-03-16 11:44:00 156 mm[Hg] Step hen F Emiliano BP Diastolic 2023-03-16 11:44:00 79 mm[Hg] Prasad phen F Emiliano Weight Measured 2023-03-16 11:44:00 219.40 pounds Iam F Emiliano Height Measured 2023-03-16 11:44:00 66.20 inches Iam F Emiliano Body Temperature 2023-03-16 11:44:00 98.20 degrees Iam F Emiliano Heart Rate 2023-03-16 11:44:00 64.00 /min Kaylie en F Emiliano Respiratory Rate 2023-03-16 11:44:00 Iam F Emiliano BP Systolic 2022-11-01 11:43:00 144 mm[Hg] Step hen F Emiliano BP Diastolic 2022-11-01 11:43:00 81 mm[Hg] Prasad phen F Emiliano Weight Measured 2022-11-01 11:43:00 213.80 pounds Iam F Emiliano Height Measured 2022-11-01 11:43:00 66.20 inches Iam F Emiliano Body Temperature 2022-11-01 11:43:00 98.70 degrees Iam F Emiliano Heart Rate 2022-11-01 11:43:00 73.00 /min Kaylie en F Emiliano Respiratory Rate 2022-11-01 11:43:00 Iam F Emiliano BP Systolic 2022-08-02 08:29:00 155 mm[Hg] Step hen F Emiliano BP Diastolic 2022-08-02 08:29:00 76 mm[Hg] Prasad phen F Emiliano Weight Measured 2022-08-02 08:29:00 207.00 pounds Iam F Emiliano Height Measured 2022-08-02 08:29:00 66.20 inches Iam F Emiliano Body Temperature 2022-08-02 08:29:00 98.30 degrees Iam F Emiliano Heart Rate 2022-08-02 08:29:00 63.00 /min Kaylie en F Emiliano Respiratory Rate 2022-08-02 08:29:00 Iam Angel Cummings BP Systolic 2022-01-25 17:24:00 170 mm[Hg] Step hen F Emiliano BP Diastolic 2022-01-25 17:24:00 76 mm[Hg] Prasad phen F Emiliano Weight Measured 2022-01-25 17:24:00 218.60 pounds Iam F Emiliano Height Measured 2022-01-25 17:24:00 66.20 inches Iam F Emiliano Body Temperature 2022-01-25 17:24:00 98.20 degrees Iam F Emiliano Heart Rate 2022-01-25 17:24:00 76.00 /min Kaylie en F Emiliano Respiratory Rate 2022-01-25 17:24:00 Iamluther Cummings BP Systolic 2021-10-21 10:26:00 155 mm[Hg] Step luther F Emiliano BP Diastolic 2021-10-21 10:26:00 79 mm[Hg] Prasad phen F Emiliano Weight Measured 2021-10-21 10:26:00 222.60 pounds Iam Cummings Height Measured 2021-10-21 10:26:00 66.20 inches Iam Angel Cummings Body Temperature 2021-10-21 10:26:00 98.10 degrees Iam F Emiliano Heart Rate 2021-10-21 10:26:00 65.00 /min Kaylie en Angel Cummings Respiratory Rate 2021-10-21 10:26:00 Iam Angel Cummings BP Systolic 2021-07-23 08:44:00 139 mm[Hg] BP Diastolic 2021-07-23 08:44:00 71 mm[Hg] Weight Measured 2021-07-23 08:44:00 218.60 pounds Height Measured 2021-07-23 08:44:00 66.20 inches Body Temperature 2021-07-23 08:44:00 97.50 degrees Heart Rate 2021-07-23 08:44:00 67.00 /min Respiratory Rate 2021-07-23 08:44:00 BP Systolic 2021-01-06 14:18:00 154 mm[Hg] BP Diastolic 2021-01-06 14:18:00 78 mm[Hg] Weight Measured 2021-01-06 14:18:00 218.80 pounds Height Measured 2021-01-06 14:18:00 66.20 inches Body Temperature 2021-01-06 14:18:00 97.40 degrees Heart Rate 2021-01-06 14:18:00 69.00 /min Respiratory Rate 2021-01-06 14:18:00 BP Systolic 2020-07-22 10:06:00 154 mm[Hg] BP Diastolic 2020-07-22 10:06:00 80 mm[Hg] Weight Measured 2020-07-22 10:06:00 225.60 pounds Height Measured 2020-07-22 10:06:00 66.00 inches Body Temperature 2020-07-22 10:06:00 97.90 degrees Heart Rate 2020-07-22 10:06:00 77.00 /min Respiratory Rate 2020-07-22 10:06:00 Procedures Procedure Date / Time Performed Performing Clinicia n Source XR CHEST 2 VW 2024-04-12 18:27:00 Yecenia Hartley [facility] XR CHEST 2 2022-11-25 19:04:44 Alessandra Powell [facility] POCT SARS-COV-2 ANTIGEN (BINAX NOW) 2022-11-25 18:50:00 Alessandra Powell [facility] ASSIGNMENT OF BENEFITS 2022-02-11 20:46:06 Docto r Unassigned, [place] [facility] OP CLINIC NOTES/CONSULTS 2022-02-05 05:01:00 Doctor Unassigned, [place] [facility] Plan of Care Planned Activity Planned Date Details Comments Source Goal Plan of Care Note [code = 30193-0] Goal Plan of Care Note [code = 02487-6] Goal Plan of Care Note [code = 86287-0] Goal Plan of Care Note [code = 81199-9] Goal Plan of Care Note [code = 61209-0] Goal Plan of Care Note [code = 36441-6] Goal Plan of Care Note [code = 95036-6] Goal Plan of Care Note [code = 23501-6] Goal Plan of Care Note [code = 78177-8] Goal Plan of Care Note [code = 74419-4] Goal Plan of Care Note [code = 41749-7] Goal Plan of Care Note [code = 90729-5] Goal Plan of Care Note [code = 23912-6] Goal Plan of Care Note [code = 14010-8] Goal Plan of Care Note [code = 89172-8] Goal Plan of Care Note [code = 84912-9] Goal Plan of Care Note [code = 20527-2] Goal Plan of Care Note [code = 28997-8] Goal Plan of Care Note [code = 52639-5] Goal Plan of Care Note [code = 34233-7] Goal Plan of Care Note [code = 72214-2] Goal Plan of Care Note [code = 89133-5] Goal Plan of Care Note [code = 50400-3] Goal Plan of Care Note [code = 17242-0] Goal Plan of Care Note [code = 72415-4] Goal Plan of Care Note [code = 48694-9] Goal Plan of Care Note [code = 54218-6] Goal Plan of Care Note [code = 40533-6] Goal Plan of Care Note [code = 61801-8] Goal Plan of Care Note [code = 15063-5] Goal Plan of Care Note [code = 00501-8] Goal Plan of Care Note [code = 51947-5] Goal Plan of Care Note [code = 01514-6] Encounters Start Date/Time End Date/Time Encounter Type Admission Type Attending [facility] Facility Care Department Encounter ID Source 2024-04-18 10:13:41 2024-04-18 10:13:41 Outpatient SFA [facility] [id number] Iam Cummings 2024-04-18 00:00:00 2024-04-18 00:00:00 Outpatient Visit [facility] [id number] Iam Cummings 2024-04-12 00:00:00 2024-04-13 16:34:56 Telephone Yecenia Hartley [facility] 1.2.840.114 350.1.13.10 4.2.7.2.686 [id number] [facility] 2024-04-12 13:20:19 2024-04-12 23:59:00 Outpatient R YECENIA HARTLEY [facility] [id number] [facility] 2024-04-12 13:20:19 2024-04-12 23:59:00 Hospital Encounter Yecenia Hartley [facility] 1.2.840.114 350.1.13.10 4.2.7.2.686 [id number] [facility] 2024-04-12 13:00:00 2024-04-12 13:20:00 Urgent Care Yecenia Hartley Unknown, [facility] 1.2.840.114 350.1.13.10 4.2.7.2.686 [id number] [facility] 2024-02-16 08:08:24 2024-02-16 08:08:24 Outpatient SFA [facility] [id number] Iam Cummings 2024-02-15 13:24:37 2024-02-15 13:24:37 Outpatient SFA [facility] [id number] Iam Cummings 2024-02-15 00:00:00 2024-02-15 00:00:00 Outpatient Visit [facility] [id number] Iam Cummings 2023-08-15 13:18:46 2023-08-15 13:18:46 Outpatient SFA [facility] [id number] Iam Cummings 2023-04-11 14:38:07 2023-04-11 14:38:07 Outpatient SFA [facility] [id number] Iam Cummings 2023-03-17 09:24:31 2023-03-17 09:24:31 Outpatient SFA [facility] [id number] Iam Cummings 2023-03-16 11:40:55 2023-03-16 11:40:55 Outpatient SFA [facility] [id number] Iam Cummings 2022-11-25 13:58:43 2022-11-25 23:59:00 Outpatient R ALESSANDRA POWELL [facility] [id number] [facility] 2022-11-25 13:58:43 2022-11-25 23:59:00 Hospital Encounter Alessandra Powell [facility] 1.2.840.114 350.1.13.10 4.2.7.2.686 [id number] [facility] 2022-11-25 13:20:00 2022-11-25 15:04:11 Urgent Care Alessandra Powell Unknown, Attending [facility] 1.2.840.114 350.1.13.10 4.2.7.2.686 [id number] [facility] 2022-11-25 00:00:00 2022-11-25 00:00:00 [facility] 1.2.840.114 350.1.13.10 4.2.7.2.686 [id number] [facility] 2022-11-01 11:38:12 2022-11-01 11:38:12 Outpatient SFA [facility] [id number] Iam Cummings 2022-08-02 08:25:11 2022-08-02 08:25:11 Outpatient SFA [facility] [id number] Iam Cummings 2022-06-01 14:04:00 2022-06-01 14:04:00 Outpatient S[facility] [id number] Iam Cummings 2022-04-28 10:57:36 2022-04-28 10:57:36 Outpatient SFA [facility] [id number] Iam Cummings 2022-04-27 00:00:00 2022-04-27 00:00:00 Outpatient Visit [id number] 2022-03-23 16:00:00 2022-03-23 16:45:00 Ancillary Visit Loulou Mckeon Craig L [facility] 1.2.840.114 350.1.13.10 4.2.7.2.686 [id number] [facility] 2022-03-23 16:00:00 2022-03-23 16:00:[address] [facility] [id number] [facility] 2022-03-18 16:00:00 2022-03-18 16:38:51 Ancillary Visit Maria D Gannon Craig L [facility] 1.2.840.114 350.1.13.10 4.2.7.2.686 [id number] [facility] 2022-03-16 14:30:00 2022-03-16 15:15:00 Ancillary Visit Sally Jenkins Craig L [facility] 1.2.840.114 350.1.13.10 4.2.7.2.686 [id number] [facility] 2022-03-16 14:30:00 2022-03-16 14:30:00 Outpatient R TITUS CANALES [facility] [id number] [facility] 2022-03-11 13:45:00 2022-03-11 14:26:30 Ancillary Visit Annette Pina Craig L [facility] 1.2.840.114 350.1.13.10 4.2.7.2.686 [id number] [facility] 2022-03-04 13:00:00 2022-03-04 13:45:00 Ancillary Visit Jovany Jenkins [facility] 1.2.840.114 350.1.13.10 4.2.7.2.686 [id number] [facility] 2022-03-02 13:00:00 2022-03-02 13:45:00 Ancillary [facility] 1.2.840.114 350.1.13.10 4.2.7.2.686 [id number] [facility] 2022-02-25 13:00:00 2022-02-25 13:45:00 Ancillary Visit Jovany Jenkins [facility] 1.2.840.114 350.1.13.10 4.2.7.2.686 [id number] [facility] 2022-02-23 13:45:00 2022-02-23 14:30:00 Ancillary Visit Annette Pina Craig L [facility] 1.2.840.114 350.1.13.10 4.2.7.2.686 [id number] [facility] 2022-02-17 13:00:00 2022-02-17 13:45:00 Ancillary Visit Sally Jenkins Craig L [facility] 1.2.840.114 350.1.13.10 4.2.7.2.686 [id number] [facility] 2022-02-15 13:00:00 2022-02-15 13:45:00 Ancillary Visit Alma Diaz Craig L [facility] 1.2.840.114 350.1.13.10 4.2.7.2.686 [id number] [facility] 2022-02-11 16:00:00 2022-02-11 16:36:13 Ancillary Visit Annette Pina Craig L [facility] 1..840.114 350.1.13.10 4.2.7.2.686 [id number] [facility] 2022-02-11 00:00:00 2022-02-11 00:00:00 Orders Only Doctor Unassigned, [place] [facility] 1.840.114 350.1.13.10 4.2.7.2.686 [id number] [facility] 2022-02-09 08:15:00 2022-02-09 09:29:45 Ancillary Visit Nancy Sanford Craig L [facility] 1..840.114 350.1.13.10 4.2.7.2.686 [id number] [facility] 2022-02-05 10:15:00 2022-02-05 11:11:53 Outpatient R TITUS CANALES [facility] [id number] [facility] 2022-02-05 10:15:00 2022-02-05 11:11:53 Ancillary Visit Maria D Gannon Craig L [facility] 1..840.114 350.1.13.10 4.2.7.2.686 [id number] [facility] 2022-02-05 00:00:00 2022-02-05 00:00:00 Orders Only Doctor Unassigned, [place] [facility] 1.2840.114 350.1.13.10 4.2.7.2.686 [id number] [facility] 2022-01-31 12:00:00 2022-01-31 12:20:00 Urgent Care Yecenia Hartley [facility] 1.2.840.114 350.1.13.10 4.2.7.2.686 [id number] [facility] 2022-01-31 12:00:00 2022-01-31 12:00:00 Outpatient R YECENIA HARTLEY [facility] [id number] [facility] 2022-01-25 00:00:00 2022-01-25 00:00:00 Outpatient Visit [id number] Results Test Description Test Time Test Comments Results Result Co mments Source TSH + FREE T4 [id number] 05:00:14* Test Item Value Reference Range Interpretation Comme [facility] TSH, THIRD GENERATION (test code = 2821) 4.090 UIU/ML 0.400-4.100 FREE T4 (THYROXINE) (test co de = 2823) 1.64 NG/DL 0.80-1.90 FSH + LH [id number] 05:00:14* Test Item Value Reference Range Interpretation Comme [facility] FOLLICLE STIM HORMONE (test code = 2700) 19.2 IU/L SEE BELOW EXPEC PADMINI VALUES FOR FSH FOR FEMALES >17 YEARS FOLLICULAR 3.5-12.5 IU/L MID-CYCLE PEAK 4.7-21.5 IU/L LUTEAL PHASE 1.7-7.7 IU/L POSTMENOPAUSAL 25.8-134.8 IU/L LUTEINIZING HORMONE (test code = 2776) 10.6 IU/L SEE BELOW EXPEC PADMINI VALUES FOR LH FOR FEMALES >17 YEARS MALES FEMALES >=18 YEARS 1.8-8.6 IU/L FOLLICULAR 2.4-12.6 IU/L MID-CYCLE PEAK 14.0-95.6 IU/L LUTEAL PHASE 1.0-11.4 IU/L POSTMENOPAUSAL 7.7-58.5 IU/L [id number] 05:00:14* Test Item Value Reference Range Interpretation Comme nts ESTRADIOL (test code = 2505) <17.0 PG/ML SEE BELOW Note: Estradiol sensitivity is 17 PG/ML. If lower levels of quantitation are necessary, consider ultrasensitive estradiol by LC-MS/MS. EXPECTED VALUES FOR ESTRADIOL FOR FEMALES >=18 YEARS FOLLICULAR . . . . . . . . . . . . . PG/ML 12.4-233.0 OVULATION. . . . . . . . . . . . . . PG/ML 41.0-398.0 LUTEAL PHASE . . . . . . . . . . . . PG/ML 22.3-341.0 POSTMENOPAUSAL SUPPLEMENTED/NON-SUPP . PG/ML <138.0/<20.0 NOTE: TO DETERMINE NORMAL VS. SUBNORMAL ESTRADIOL IN POSTMENOPAUSAL FEMALES, CONSIDER ULTRASENSITIVE ESTRADIOL ([facility] ORDER CODE 5678). METHODOLOGY IS PRAMOD JESSICA ELECTROCHEMILUMINESCENT IMMUNOASSAY WITH A LIMIT OF DETECTION OF 17 PG/ML. UNLESS OTHERWISE INDICATED, ALL TESTING PERFORMED AT [facility] [address] [place] [address] FIELD SERVICE SUPERVISOR: DIANNE MIRANDA M.D. CLIA NUMBER [id number] [facility] [place]. [id number] FSH + LH [id number] 00:00:00* Test Item Value Reference Range Interpretation Comme nts FOLLICLE STIM HORMONE (test code = 2700) 19.2 IU/L LUTEINIZING HORMONE (test co de = 2776) 10.6 IU/L Iam [id number] 00:00:00* Test Item Value Reference Range Interpretation Comme nts ESTRADIOL (test code = 2505) <17.0 PG/ML Iam Ortiz EmilianoCBC W/AUTO [id number] 00:00:00* Test Item Value Reference Range Interpretation Comme nts WBC (test code = 1001) 11.0 K/UL RBC (test code = 1002) 4.89 M/UL HEMOGLOBIN (test code = 1003) 8.7 G/DL HEMATOCRIT (test code = 1004) 32.6 % MCV (test code = 1005) 66.7 fL MCH (test code = 1006) 17.8 PG MCHC (test code = 1007) 26.7 G/DL RDW (test code = 1038) 19.2 % NEUTROPHILS (test code = 1008) 70.9 % LYMPHOCYTES (test code = 1010) 19.2 % MONOCYTES (test code = 1011) 6.4 % EOSINOPHILS (test code = 1012) 2.3 % BASOPHILS (test code = 1013) 0.8 % IMMATURE GRANULOCYTES (test code = 1036) 0.4 % NUCLEATED RBCS (test code = 1065) 0.0 /100WBC'S PLATELET COUNT (test code = 1015) 405 K/UL ABSOLUTE NEUTROPHILS (test c ode = 1066) 7.82 K/UL ABSOLUTE LYMPHOCYTES (test c ode = 1067) 2.11 K/UL ABSOLUTE MONOCYTES (test cod e = 1068) 0.70 K/UL ABSOLUTE EOSINOPHILS (test c ode = 1040) 0.25 K/UL ABSOLUTE BASOPHILS (test cod e = 1069) 0.09 K/UL ABS IMMATURE GRANULOCYTES (t est code = 1020) 0.04 K/UL ABS NUCLEATED RBCS (test cod e = 36321) 0.00 K/UL COMMENTS (test code = 1016) (NOTE) Iam CummingsTSH + FREE T4 [id number] 00:00:00* Test Item Value Reference Range Interpretation Comme nts TSH, THIRD GENERATION (test code = 2821) 4.090 UIU/ML FREE T4 (THYROXINE) (test co de = 2823) 1.64 NG/DL Iam CummingsALBUMIN/CREATININE RATIO, URINE, [id number] 06:31:34* Test Item Value Reference Range Interpretation Comme nts CREATININE, URINE, CONC. (test code = 2072) 128.6 MG/DL NOT ESTAB ALBUMIN, URINE, RANDOM (test code = 91687) 7.9 MG/DL NOT ESTAB CALC ALBUMIN/CREAT, RND (test code = 08410) 61 MG/G <30 H Note: Albumin/Creatinine ratio reference interval reflects ADA and NKF guidelines. LIPID [id number] 04:20:21* Test Item Value Reference Range Interpretation Comme nts CHOLESTEROL (test code = 2210) 119 MG/DL <200 TRIGLYCERIDES (test code = 2232) 73 MG/DL <150 HDL CHOLESTEROL (test code = 2220) 56 MG/DL >39 CALC LDL CHOL (test code = 2237) 48 MG/DL <100 NOTE: CALCULATED LDL IS BASED ON ADARSH-URBAN METHOD WHICHINCLUDES ADJUSTABLE TRIGLYCERIDE:VLDL CHOLESTEROL RATIO.THIS FACTOR VARIES BY MEASURED TRIGLYCERIDE AND NON-HDLCHOLESTEROL CONCENTRATIONS WITH INCREASED CALCULATED LDL SEENIN HIGHER TRIGLYCERIDE OR LOWER NON-HDL SPECIMENS. FOR MOREINFORMATION, SEE CLIENT ANNOUNCEMENT AT [email or web address] RISK RATIO LDL/HDL (test code = 2237) 0.86 RATIO <3.22 COMPREHENSIVE METABOLIC [id number] 04:20:21* Test Item Value Reference Range Interpretation Comme nts GLUCOSE (test code = 2216) 201 MG/DL 70-99 H BUN (test code = 2207) 10 MG/DL 8-23 CREATININE (test code = 2213) 0.91 MG/DL 0.60-1.30 eGFR (2020 CKD-EPI) (test code = 94892) 70 ML/MIN/1.73 >60 CALC BUN/CREAT (test code = 5) 11 RATIO 6-28 SODIUM (test code = 2230) 137 MEQ/L 133-146 POTASSIUM (test code = 2227) 4.2 MEQ/L 3.5-5.4 CHLORIDE (test code = 5) 97 MEQ/L 95-107 CARBON DIOXIDE (test code = 2205) 27 MEQ/L 19-31 CALCIUM (test code = 2208) 9.6 MG/DL 8.5-10.5 PROTEIN, TOTAL (test code = 2228) 6.6 G/DL 6.1-8.3 ALBUMIN (test code = 2200) 4.2 G/DL 3.5-5.2 CALC GLOBULIN (test code = 2240) 2.4 G/DL 1.9-3.7 CALC A/G RATIO (test code = 2233) 1.8 RATIO 1.0-2.6 BILIRUBIN, TOTAL (test code = 2206) 0.4 MG/DL <=1.2 ALKALINE PHOSPHATASE (test code = 2203) 85 U/L 40-140 AST (test code = 2217) 12 U/L 9-40 ALT (test code = 221) 12 U/L 5-40 UNLESS OTHERWISE INDICATED, ALL TESTING PERFORMED AT [facility] [address] [place] [address], [place] [address] FIELD SERVICE SUPERVISOR: DIANNE MIRANDA M.D. CLIA NUMBER [id number] [facility] [place]. [id number] HEMOGLOBIN [id number] 02:56:41* Test Item Value Reference Range Interpretation Comme [facility] HEMOGLOBIN A1c (test code = 24215) 8.1 % 4.2-5.6 H [employer] GUIDELINES FOR HGB A1C: PREDIABETES/INCREASED RISK . . . . . . . 5.7-6.4% DIAGNOSIS OF DIABETES . . . . . . . . . >=6.5% WITH CONFIRMATION OR APPROPRIATE SYMPTOMS NOTE: ASSAY MAY BE AFFECTED BY HEMOGLOBINOPATHIES (SICKLE CELL ANEMIA, S-C DISEASE, OTHERS) OR ARTIFICIALLY LOWERED BY DECREASED RED CELL SURVIVAL (HEMOLYTIC ANEMIAS, BLOOD LOSS, ETC.). CONSIDER ALTERNATE TESTING OR LABORATORY CONSULTATION. HEMOGLOBIN [id number] 00:00:00* Test Item Value Reference Range Interpretation Comme [facility] HEMOGLOBIN A1c (test code = 87540) 8.1 % Iam CummingsCOMPREHENSIVE METABOLIC [id number] 00:00:00* Test Item Value Reference Range Interpretation Comme nts GLUCOSE (test code = 2217) 201 MG/DL BUN (test code = 2208) 10 MG/DL CREATININE (test code = 2214) 0.91 MG/DL eGFR (2020 CKD-EPI) (test co de = 00504) 70 ML/MIN/1.73 CALC BUN/CREAT (test code = 2235) 11 RATIO SODIUM (test code = 2231) 137 MEQ/L POTASSIUM (test code = 2228) 4.2 MEQ/L CHLORIDE (test code = 2215) 97 MEQ/L CARBON DIOXIDE (test code = 2206) 27 MEQ/L CALCIUM (test code = 2209) 9.6 MG/DL PROTEIN, TOTAL (test code = 2229) 6.6 G/DL ALBUMIN (test code = 2201) 4.2 G/DL CALC GLOBULIN (test code = 2240) 2.4 G/DL CALC A/G RATIO (test code = 2234) 1.8 RATIO BILIRUBIN, TOTAL (test code = 2207) 0.4 MG/DL ALKALINE PHOSPHATASE (test code = 2204) 85 U/L AST (test code = 2218) 12 U/L ALT (test code = 2219) 12 U/L Iam CummingsALBUMIN/CREATININE RATIO, RANDOM [id number] 00:00:00* Test Item Value Reference Range Interpretation Comme nts CREATININE, URINE, CONC. (te st code = 2072) 128.6 MG/DL ALBUMIN, URINE, RANDOM (test code = 97820) 7.9 MG/DL CALC ALBUMIN/CREAT, RND (oleksandr t code = 82019) 61 MG/G Iam CummingsLIPID [id number] 00:00:00* Test Item Value Reference Range Interpretation Comme nts CHOLESTEROL (test code = 2210) 119 MG/DL TRIGLYCERIDES (test code = 2232) 73 MG/DL HDL CHOLESTEROL (test code = 2220) 56 MG/DL CALC LDL CHOL (test code = 2237) 48 MG/DL RISK RATIO LDL/HDL (test cod e = 2238) 0.86 RATIO Iam CummingsHEMOGLOBIN [id number] 00:00:00* Test Item Value Reference Range Interpretation Comme nts HEMOGLOBIN A1c (test code = 60014) 8.1 % Iam CummingsCOMPREHENSIVE METABOLIC [id number] 00:00:00* Test Item Value Reference Range Interpretation Comme nts GLUCOSE (test code = 2217) 201 MG/DL BUN (test code = 2208) 10 MG/DL CREATININE (test code = 2214) 0.91 MG/DL eGFR (2020 CKD-EPI) (test co de = 85848) 70 ML/MIN/1.73 CALC BUN/CREAT (test code = 2235) 11 RATIO SODIUM (test code = 2231) 137 MEQ/L POTASSIUM (test code = 2228) 4.2 MEQ/L CHLORIDE (test code = 2215) 97 MEQ/L CARBON DIOXIDE (test code = 2206) 27 MEQ/L CALCIUM (test code = 2209) 9.6 MG/DL PROTEIN, TOTAL (test code = 2229) 6.6 G/DL ALBUMIN (test code = 2201) 4.2 G/DL CALC GLOBULIN (test code = 2240) 2.4 G/DL CALC A/G RATIO (test code = 2234) 1.8 RATIO BILIRUBIN, TOTAL (test code = 2207) 0.4 MG/DL ALKALINE PHOSPHATASE (test code = 2204) 85 U/L AST (test code = 2218) 12 U/L ALT (test code = 2219) 12 U/L Iam F AustinALBUMIN/CREATININE RATIO, RANDOM [id number] 00:00:00* Test Item Value Reference Range Interpretation Comme nts CREATININE, URINE, CONC. (te st code = 2071) 128.6 MG/DL ALBUMIN, URINE, RANDOM (test code = 95287) 7.9 MG/DL CALC ALBUMIN/CREAT, RND (oleksandr t code = 40084) 61 MG/G Iam CummingsLIPID [id number] 00:00:00* Test Item Value Reference Range Interpretation Comme nts CHOLESTEROL (test code = 2210) 119 MG/DL TRIGLYCERIDES (test code = 2232) 73 MG/DL HDL CHOLESTEROL (test code = 2220) 56 MG/DL CALC LDL CHOL (test code = 2237) 48 MG/DL RISK RATIO LDL/HDL (test cod e = 2238) 0.86 RATIO Iam CummingsALBUMIN/CREATININE RATIO, URINE, [id number] 05:00:49* Test Item Value Reference Range Interpretation Comme nts CREATININE, URINE, CONC. (test code = 2071) 202.9 MG/DL NOT ESTAB ALBUMIN, URINE, RANDOM (test code = 58350) 2.4 MG/DL NOT ESTAB CALC ALBUMIN/CREAT, RND (test code = 34235) 12 MG/G <30 Note: Albumin/Cr eatinine ratio reference interval reflects ADA and NKF guidelines. UNLESS OTHERWISE INDICATED, ALL TESTING PERFORMED AT [facility] [address] [place] [address] FIELD SERVICE SUPERVISOR: DIANNE MIRANDA M.D. CLIA NUMBER [id number] [facility] [place]. [id number] COMPREHENSIVE METABOLIC [id number] 03:33:22* Test Item Value Reference Range Interpretation Comme nts GLUCOSE (test code = 2217) 137 MG/DL 70-99 H BUN (test code = 2208) 13 MG/DL 8-23 CREATININE (test code = 2214) 0.83 MG/DL 0.60-1.30 eGFR (2020 CKD-EPI) (test code = 88452) 79 ML/MIN/1.73 >60 CALC BUN/CREAT (test code = 2235) 16 RATIO 6-28 SODIUM (test code = 223) 142 MEQ/L 133-146 POTASSIUM (test code = 2228) 4.3 MEQ/L 3.5-5.4 CHLORIDE (test code = 5) 104 MEQ/L 95-107 CARBON DIOXIDE (test code = 6) 27 MEQ/L 19-31 CALCIUM (test code = 2208) 10.3 MG/DL 8.5-10.5 PROTEIN, TOTAL (test code = 2229) 6.8 G/DL 6.1-8.3 ALBUMIN (test code = 1) 4.2 G/DL 3.5-5.2 CALC GLOBULIN (test code = 0) 2.6 G/DL 1.9-3.7 CALC A/G RATIO (test code = 2233) 1.6 RATIO 1.0-2.6 BILIRUBIN, TOTAL (test code = 2206) 0.3 MG/DL See_Comment [Automated me ssage] The system which generated this result transmitted reference range: <=1.2. The reference range was not used to interpret this result as normal/abnormal. ALKALINE PHOSPHATASE (test code = 2203) 77 U/L 40-140 AST (test code = 2217) 14 U/L 9-40 ALT (test code = 2218) 16 U/L 5-40 LIPID [id number] 03:33:22* Test Item Value Reference Range Interpretation Comme nts CHOLESTEROL (test code = 0) 158 MG/DL <200 TRIGLYCERIDES (test code = 2232) 88 MG/DL <150 HDL CHOLESTEROL (test code = 0) 54 MG/DL >39 CALC LDL CHOL (test code = 2236) 86 MG/DL <100 NOTE: CALCULATED LDL IS BASED ON ADARSH-URBAN METHOD WHICHINCLUDES ADJUSTABLE TRIGLYCERIDE:VLDL CHOLESTEROL RATIO.THIS FACTOR VARIES BY MEASURED TRIGLYCERIDE AND NON-HDLCHOLESTEROL CONCENTRATIONS WITH INCREASED CALCULATED LDL SEENIN HIGHER TRIGLYCERIDE OR LOWER NON-HDL SPECIMENS. FOR MOREINFORMATION, SEE CLIENT ANNOUNCEMENT AT [email or web address] RISK RATIO LDL/HDL (test code = 2238) 1.59 RATIO <3.22 HEMOGLOBIN [id number] 02:58:15* Test Item Value Reference Range Interpretation Comme nts HEMOGLOBIN A1c (test code = 70396) 8.7 % 4.2-5.6 H [employer] GUIDELINES FOR HGB A1C: PREDIABETES/INCREASED RISK . . . . . . . 5.7-6.4% DIAGNOSIS OF DIABETES . . . . . . . . . >=6.5% WITH CONFIRMATION OR APPROPRIATE SYMPTOMS NOTE: ASSAY MAY BE AFFECTED BY HEMOGLOBINOPATHIES (SICKLE CELL ANEMIA, S-C DISEASE, OTHERS) OR ARTIFICIALLY LOWERED BY DECREASED RED CELL SURVIVAL (HEMOLYTIC ANEMIAS, BLOOD LOSS, ETC.). CONSIDER ALTERNATE TESTING OR LABORATORY CONSULTATION. HEMOGLOBIN [id number] 00:00:00* Test Item Value Reference Range Interpretation Comme [facility] HEMOGLOBIN A1c (test code = 02182) 8.7 % Iam Ortiz EmilianoALBUMIN/CREATININE RATIO, RANDOM [id number] 00:00:00* Test Item Value Reference Range Interpretation Comme nts CREATININE, URINE, CONC. (te st code = 2072) 202.9 MG/DL ALBUMIN, URINE, RANDOM (test code = 27997) 2.4 MG/DL CALC ALBUMIN/CREAT, RND (oleksandr t code = 55055) 12 MG/G Iam Ortiz EmilianoCOMPREHENSIVE METABOLIC [id number] 00:00:00* Test Item Value Reference Range Interpretation Comme nts GLUCOSE (test code = 2217) 137 MG/DL BUN (test code = 2208) 13 MG/DL CREATININE (test code = 2214) 0.83 MG/DL eGFR (2020 CKD-EPI) (test co de = 23196) 79 ML/MIN/1.73 CALC BUN/CREAT (test code = 2235) 16 RATIO SODIUM (test code = 2231) 142 MEQ/L POTASSIUM (test code = 2228) 4.3 MEQ/L CHLORIDE (test code = 2215) 104 MEQ/L CARBON DIOXIDE (test code = 2206) 27 MEQ/L CALCIUM (test code = 2209) 10.3 MG/DL PROTEIN, TOTAL (test code = 2229) 6.8 G/DL ALBUMIN (test code = 2201) 4.2 G/DL CALC GLOBULIN (test code = 2240) 2.6 G/DL CALC A/G RATIO (test code = 2234) 1.6 RATIO BILIRUBIN, TOTAL (test code = 2207) 0.3 MG/DL ALKALINE PHOSPHATASE (test code = 2204) 77 U/L AST (test code = 2218) 14 U/L ALT (test code = 2219) 16 U/L Iam CummingsLIPID [id number] 00:00:00* Test Item Value Reference Range Interpretation Comme nts CHOLESTEROL (test code = 2210) 158 MG/DL TRIGLYCERIDES (test code = 2232) 88 MG/DL HDL CHOLESTEROL (test code = 2220) 54 MG/DL CALC LDL CHOL (test code = 2237) 86 MG/DL RISK RATIO LDL/HDL (test cod e = 2238) 1.59 RATIO Iam CummingsHEMOGLOBIN [id number] 00:00:00* Test Item Value Reference Range Interpretation Comme [facility]ris HEMOGLOBIN A1c (test code = 54876) 8.7 % Iam Ortiz AustinALBUMIN/CREATININE RATIO, RANDOM [id number] 00:00:00* Test Item Value Reference Range Interpretation Comme nts CREATININE, URINE, CONC. (te st code = 2072) 202.9 MG/DL ALBUMIN, URINE, RANDOM (test code = 38556) 2.4 MG/DL CALC ALBUMIN/CREAT, RND (oleksandr t code = 04489) 12 MG/G Iam CummingsCOMPREHENSIVE METABOLIC [id number] 00:00:00* Test Item Value Reference Range Interpretation Comme nts GLUCOSE (test code = 2217) 137 MG/DL BUN (test code = 2208) 13 MG/DL CREATININE (test code = 2214) 0.83 MG/DL eGFR (2020 CKD-EPI) (test co de = 34269) 79 ML/MIN/1.73 CALC BUN/CREAT (test code = 2235) 16 RATIO SODIUM (test code = 2231) 142 MEQ/L POTASSIUM (test code = 2228) 4.3 MEQ/L CHLORIDE (test code = 2215) 104 MEQ/L CARBON DIOXIDE (test code = 2206) 27 MEQ/L CALCIUM (test code = 2209) 10.3 MG/DL PROTEIN, TOTAL (test code = 2229) 6.8 G/DL ALBUMIN (test code = 2201) 4.2 G/DL CALC GLOBULIN (test code = 2240) 2.6 G/DL CALC A/G RATIO (test code = 2234) 1.6 RATIO BILIRUBIN, TOTAL (test code = 2207) 0.3 MG/DL ALKALINE PHOSPHATASE (test code = 2204) 77 U/L AST (test code = 2218) 14 U/L ALT (test code = 2219) 16 U/L Iam Ortiz AustinLIPID [id number] 00:00:00* Test Item Value Reference Range Interpretation Comme nts CHOLESTEROL (test code = 2210) 158 MG/DL TRIGLYCERIDES (test code = 2232) 88 MG/DL HDL CHOLESTEROL (test code = 2220) 54 MG/DL CALC LDL CHOL (test code = 2237) 86 MG/DL RISK RATIO LDL/HDL (test cod e = 2238) 1.59 RATIO Iam CummingsPOCT SARS-COV-2 ANTIGEN (BINAX NOW)2022-11-25 19:06:00* Test Item Value Reference Range Interpretation Comme nts POCT SARS-COV-2 ANTIGEN (test code = 85040-9) Not Detected Not Detected On board controls acceptable with C Line (test code = 3574) Yes JOS (test code = JOS) accurate developme nt and interpretation of all internal controls Lab Interpretation (test code = 40613-3) Normal [facility] SARS-COV-2 ANTIGEN (BINAX NOW)2022-11-25 19:06:00* Test Item Value Reference Range Interpretation Comme nts POCT SARS-COV-2 ANTIGEN (test code = 20226-7) Not Detected Not Detected On board controls acceptable with C Line (test code = 3574) Yes JOS (test code = JOS) accurate developme nt and interpretation of all internal controls Lab Interpretation (test code = 94094-6) [facility] [id number] 04:21:25* Test Item Value Reference Range Interpretation Comme [facility] HEMOGLOBIN A1c (test code = 93661) 8.6 % 4.2-5.6 H [employer] GUIDELINES FOR HGB A1C: PREDIABETES/INCREASED RISK . . . . . . . 5.7-6.4% DIAGNOSIS OF DIABETES . . . . . . . . . >=6.5% WITH CONFIRMATION OR APPROPRIATE SYMPTOMS NOTE: ASSAY MAY BE AFFECTED BY HEMOGLOBINOPATHIES (SICKLE CELL ANEMIA, S-C DISEASE, OTHERS) OR ARTIFICIALLY LOWERED BY DECREASED RED CELL SURVIVAL (HEMOLYTIC ANEMIAS, BLOOD LOSS, ETC.). CONSIDER ALTERNATE TESTING OR LABORATORY CONSULTATION. [facility] has important pathology staff changes effective 09/15/2022. New pathology staff will provide uninterrupted, excellent patient care and clinical consultation. See URL: [email or web address]. UNLESS OTHERWISE INDICATED, ALL TESTING PERFORMED AT [facility] [address] [place] [address] FIELD SERVICE SUPERVISOR: DIANNE MIRANDA M.D. IA NUMBER [id number] [facility] [place]. [id number] HEMOGLOBIN [id number] 00:00:00* Test Item Value Reference Range Interpretation Comme [facility] HEMOGLOBIN A1c (test code = 82598) 8.6 % Iam CummingsHEMOGLOBIN [id number] 00:00:00* Test Item Value Reference Range Interpretation Comme [facility] HEMOGLOBIN A1c (test code = 70179) 8.6 % Iam CummingsCOMPREHENSIVE METABOLIC [id number] 03:25:24* Test Item Value Reference Range Interpretation Comme nts GLUCOSE (test code = 2217) 145 MG/DL 70-99 H BUN (test code = 2208) 14 MG/DL 8-23 CREATININE (test code = 2214) 0.83 MG/DL 0.60-1.30 eGFR (2020 CKD-EPI) (test code = 12528) 79 ML/MIN/1.73 >60 CALC BUN/CREAT (test code = 2235) 17 RATIO 6-28 SODIUM (test code = 2231) 141 MEQ/L 133-146 POTASSIUM (test code = 2228) 4.3 MEQ/L 3.5-5.4 CHLORIDE (test code = 2215) 99 MEQ/L 95-107 CARBON DIOXIDE (test code = 2206) 26 MEQ/L 19-31 CALCIUM (test code = 2209) 10.6 MG/DL 8.5-10.5 H PROTEIN, TOTAL (test code = 2229) 7.5 G/DL 6.1-8.3 ALBUMIN (test code = 2201) 4.7 G/DL 3.5-5.2 CALC GLOBULIN (test code = 2240) 2.8 G/DL 1.9-3.7 CALC A/G RATIO (test code = 2234) 1.7 RATIO 1.0-2.6 BILIRUBIN, TOTAL (test code = 2207) 0.4 MG/DL See_Comment [Automated me ssage] The system which generated this result transmitted reference range: <=1.2. The reference range was not used to interpret this result as normal/abnormal. ALKALINE PHOSPHATASE (test code = 2204) 101 U/L 40-140 AST (test code = 2218) 14 U/L 9-40 ALT (test code = 2219) 16 U/L 5-40 LIPID [id number] 03:25:24* Test Item Value Reference Range Interpretation Comme nts CHOLESTEROL (test code = 2210) 139 MG/DL <200 TRIGLYCERIDES (test code = 2232) 86 MG/DL <150 HDL CHOLESTEROL (test code = 2220) 50 MG/DL >39 CALC LDL CHOL (test code = 2237) 72 MG/DL <100 NOTE: CALCULATED LDL IS BASED ON ADARSH-URBAN METHOD WHICHINCLUDES ADJUSTABLE TRIGLYCERIDE:VLDL CHOLESTEROL RATIO.THIS FACTOR VARIES BY MEASURED TRIGLYCERIDE AND NON-HDLCHOLESTEROL CONCENTRATIONS WITH INCREASED CALCULATED LDL SEENIN HIGHER TRIGLYCERIDE OR LOWER NON-HDL SPECIMENS. FOR MOREINFORMATION, SEE CLIENT ANNOUNCEMENT AT [email or web address] /CalcLDL-C RISK RATIO LDL/HDL (test code = 2238) 1.44 RATIO <3.22 HEMOGLOBIN [id number] 03:18:59* Test Item Value Reference Range Interpretation Comme nts HEMOGLOBIN A1c (test code = 13153) 8.3 % 4.2-5.6 H [employer] GUIDELINES FOR HGB A1C: PREDIABETES/INCREASED RISK . . . . . . . 5.7-6.4% DIAGNOSIS OF DIABETES . . . . . . . . . >=6.5% WITH CONFIRMATION OR APPROPRIATE SYMPTOMS NOTE: ASSAY MAY BE AFFECTED BY HEMOGLOBINOPATHIES (SICKLE CELL ANEMIA, S-C DISEASE, OTHERS) OR ARTIFICIALLY LOWERED BY DECREASED RED CELL SURVIVAL (HEMOLYTIC ANEMIAS, BLOOD LOSS, ETC.). CONSIDER ALTERNATE TESTING OR LABORATORY CONSULTATION. UNLESS OTHERWISE INDICATED, ALL TESTING PERFORMED [facility] [address] [place] [address], [place] [address] FIELD SERVICE SUPERVISOR: JOSSIE MCLAIN M.D. CLIA NUMBER [id number] [facility] [place]. [id number] HEMOGLOBIN A1c [ADDED]2022-08-03 00:00:00* Test Item Value Reference Range Interpretation Comme nts HEMOGLOBIN A1c (test code = 21695) 8.3 % Iam CummingsCOMPREHENSIVE METABOLIC PANEL [ADDED]2022-08-03 00:00:00* Test Item Value Reference Range Interpretation Comme nts GLUCOSE (test code = 2217) 145 MG/DL BUN (test code = 2208) 14 MG/DL CREATININE (test code = 2214) 0.83 MG/DL eGFR (2020 CKD-EPI) (test co de = 81901) 79 ML/MIN/1.73 CALC BUN/CREAT (test code = 2235) 17 RATIO SODIUM (test code = 2231) 141 MEQ/L POTASSIUM (test code = 2228) 4.3 MEQ/L CHLORIDE (test code = 2215) 99 MEQ/L CARBON DIOXIDE (test code = 2206) 26 MEQ/L CALCIUM (test code = 2209) 10.6 MG/DL PROTEIN, TOTAL (test code = 2229) 7.5 G/DL ALBUMIN (test code = 2201) 4.7 G/DL CALC GLOBULIN (test code = 2240) 2.8 G/DL CALC A/G RATIO (test code = 2234) 1.7 RATIO BILIRUBIN, TOTAL (test code = 2207) 0.4 MG/DL ALKALINE PHOSPHATASE (test code = 2204) 101 U/L AST (test code = 2218) 14 U/L ALT (test code = 2219) 16 U/L Iam CummingsLIPID PANEL [ADDED]2022-08-03 00:00:00* Test Item Value Reference Range Interpretation Comme nts CHOLESTEROL (test code = 2210) 139 MG/DL TRIGLYCERIDES (test code = 2232) 86 MG/DL HDL CHOLESTEROL (test code = 2220) 50 MG/DL CALC LDL CHOL (test code = 2237) 72 MG/DL RISK RATIO LDL/HDL (test cod e = 2238) 1.44 RATIO Iam CummingsHEMOGLOBIN A1c [ADDED]2022-08-03 00:00:00* Test Item Value Reference Range Interpretation Comme nts HEMOGLOBIN A1c (test code = 84686) 8.3 % Iam CummingsCOMPREHENSIVE METABOLIC PANEL [ADDED]2022-08-03 00:00:00* Test Item Value Reference Range Interpretation Comme nts GLUCOSE (test code = 2217) 145 MG/DL BUN (test code = 2208) 14 MG/DL CREATININE (test code = 2214) 0.83 MG/DL eGFR (2020 CKD-EPI) (test co de = 92326) 79 ML/MIN/1.73 CALC BUN/CREAT (test code = 2235) 17 RATIO SODIUM (test code = 2231) 141 MEQ/L POTASSIUM (test code = 2228) 4.3 MEQ/L CHLORIDE (test code = 2215) 99 MEQ/L CARBON DIOXIDE (test code = 2206) 26 MEQ/L CALCIUM (test code = 2209) 10.6 MG/DL PROTEIN, TOTAL (test code = 2229) 7.5 G/DL ALBUMIN (test code = 2201) 4.7 G/DL CALC GLOBULIN (test code = 2240) 2.8 G/DL CALC A/G RATIO (test code = 2234) 1.7 RATIO BILIRUBIN, TOTAL (test code = 2207) 0.4 MG/DL ALKALINE PHOSPHATASE (test code = 2204) 101 U/L AST (test code = 2218) 14 U/L ALT (test code = 2219) 16 U/L Iam CummingsLIPID PANEL [ADDED]2022-08-03 00:00:00* Test Item Value Reference Range Interpretation Comme nts CHOLESTEROL (test code = 2210) 139 MG/DL TRIGLYCERIDES (test code = 2232) 86 MG/DL HDL CHOLESTEROL (test code = 2220) 50 MG/DL CALC LDL CHOL (test code = 2237) 72 MG/DL RISK RATIO LDL/HDL (test cod e = 2238) 1.44 RATIO Iam CummingsHEMOGLOBIN [id number] 03:26:03* Test Item Value Reference Range Interpretation Comme nts HEMOGLOBIN A1c (test code = 70734) 7.5 % 4.2-5.6 H [employer] GUIDELINES FOR HGB A1C: PREDIABETES/INCREASED RISK . . . . . . . 5.7-6.4% DIAGNOSIS OF DIABETES . . . . . . . . . >=6.5% WITH CONFIRMATION OR APPROPRIATE SYMPTOMS NOTE: ASSAY MAY BE AFFECTED BY HEMOGLOBINOPATHIES (SICKLE CELL ANEMIA, S-C DISEASE, OTHERS) OR ARTIFICIALLY LOWERED BY DECREASED RED CELL SURVIVAL (HEMOLYTIC ANEMIAS, BLOOD LOSS, ETC.). CONSIDER ALTERNATE TESTING OR LABORATORY CONSULTATION. UNLESS OTHERWISE INDICATED, ALL TESTING PERFORMED ATCLINS[employer] [facility] [employer] [address] [place] [address], [place] [address] FIELD SERVICE SUPERVISOR: JOSSIE MCLAIN M.D. CLIA NUMBER [id number] [facility] [place]. [id number] HEMOGLOBIN A1c [ADDED]2022-04-29 00:00:00* Test Item Value Reference Range Interpretation Comme kris HEMOGLOBIN A1c (test code = 82580) 7.5 % Iam CummingsHEMOGLOBIN A1c [ADDED]2022-04-29 00:00:00* Test Item Value Reference Range Interpretation Comme kris HEMOGLOBIN A1c (test code = 98662) 7.5 % Iam CummingsHEMOGLOBIN [id number] 08:35:43* Test Item Value Reference Range Interpretation Comme kris HEMOGLOBIN A1c (test code = 63574) 9.6 % 4.2-5.6 H [employer] GUIDELINES FOR HGB A1C: PREDIABETES/INCREASED RISK . . . . . . . 5.7-6.4% DIAGNOSIS OF DIABETES . . . . . . . . . >=6.5% WITH CONFIRMATION OR APPROPRIATE SYMPTOMS NOTE: ASSAY MAY BE AFFECTED BY HEMOGLOBINOPATHIES (SICKLE CELL ANEMIA, S-C DISEASE, OTHERS) OR ARTIFICIALLY LOWERED BY DECREASED RED CELL SURVIVAL (HEMOLYTIC ANEMIAS, BLOOD LOSS, ETC.). CONSIDER ALTERNATE TESTING OR LABORATORY CONSULTATION. LIPID [id number] 04:24:21* Test Item Value Reference Range Interpretation Comme nts CHOLESTEROL (test code = 2210) 118 MG/DL <200 TRIGLYCERIDES (test code = 2232) 105 MG/DL <150 HDL CHOLESTEROL (test code = 2220) 41 MG/DL >39 CALC LDL CHOL (test code = 2237) 58 MG/DL <100 NOTE: CALCULATED LDL IS BASED ON ADARSH-URBAN METHOD WHICHINCLUDES ADJUSTABLE TRIGLYCERIDE:VLDL CHOLESTEROL RATIO.THIS FACTOR VARIES BY MEASURED TRIGLYCERIDE AND NON-HDLCHOLESTEROL CONCENTRATIONS WITH INCREASED CALCULATED LDL SEENIN HIGHER TRIGLYCERIDE OR LOWER NON-HDL SPECIMENS. FOR MOREINFORMATION, SEE CLIENT ANNOUNCEMENT AT [email or web address] RISK RATIO LDL/HDL (test code = 2238) 1.41 RATIO <3.22 COMPREHENSIVE METABOLIC [id number] 04:24:21* Test Item Value Reference Range Interpretation Comme nts GLUCOSE (test code = 2217) 92 MG/DL 70-99 BUN (test code = 2208) 16 MG/DL 8-23 CREATININE (test code = 2214) 1.24 MG/DL 0.60-1.30 eGFR (2020 CKD-EPI) (test code = 52875) 49 ML/MIN/1.73 >60 L CALC BUN/CREAT (test code = 2235) 13 RATIO 6-28 SODIUM (test code = 223) 141 MEQ/L 133-146 POTASSIUM (test code = 2228) 4.2 MEQ/L 3.5-5.4 CHLORIDE (test code = 2215) 101 MEQ/L 95-107 CARBON DIOXIDE (test code = 2206) 28 MEQ/L 19-31 CALCIUM (test code = 2209) 11.0 MG/DL 8.5-10.5 H PROTEIN, TOTAL (test code = 222) 7.1 G/DL 6.1-8.3 ALBUMIN (test code = 220) 4.1 G/DL 3.5-5.2 CALC GLOBULIN (test code = 2240) 3.0 G/DL 1.9-3.7 CALC A/G RATIO (test code = 2234) 1.4 RATIO 1.0-2.6 BILIRUBIN, TOTAL (test code = 2206) 0.7 MG/DL See_Comment [Automated me ssage] The system which generated this result transmitted reference range: <=1.2. The reference range was not used to interpret this result as normal/abnormal. ALKALINE PHOSPHATASE (test code = 2203) 100 U/L 40-140 AST (test code = 2218) 16 U/L 9-40 ALT (test code = 2219) 13 U/L 5-40 VITAMIN [id number] 04:18:11* Test Item Value Reference Range Interpretation Comme nts VITAMIN B-12 (test code = 2840) 766 PG/ML 200-950 UNLESS OTHERWISE INDICATED, ALL TESTING PERFORMED ATCLINSend [facility] [address] [place] [address] FIELD SERVICE SUPERVISOR: JOSSIE MCLAIN M.D. CLIA NUMBER [id number] [facility] [place]. [id number] COMPREHENSIVE METABOLIC PANEL [ADDED]2022-01-27 00:00:00* Test Item Value Reference Range Interpretation Comme nts GLUCOSE (test code = 2217) 92 MG/DL BUN (test code = 2207) 16 MG/DL CREATININE (test code = 2214) 1.24 MG/DL eGFR (2020 CKD-EPI) (test co de = 34297) 49 ML/MIN/1.73 CALC BUN/CREAT (test code = 2235) 13 RATIO SODIUM (test code = 2231) 141 MEQ/L POTASSIUM (test code = 2228) 4.2 MEQ/L CHLORIDE (test code = 2215) 101 MEQ/L CARBON DIOXIDE (test code = 2206) 28 MEQ/L CALCIUM (test code = 2209) 11.0 MG/DL PROTEIN, TOTAL (test code = 2229) 7.1 G/DL ALBUMIN (test code = 2201) 4.1 G/DL CALC GLOBULIN (test code = 2240) 3.0 G/DL CALC A/G RATIO (test code = 2234) 1.4 RATIO BILIRUBIN, TOTAL (test code = 2207) 0.7 MG/DL ALKALINE PHOSPHATASE (test code = 2204) 100 U/L AST (test code = 2218) 16 U/L ALT (test code = 2219) 13 U/L Iam Ortiz AustinVITAMIN B-12 [ADDED]2022-01-27 00:00:00* Test Item Value Reference Range Interpretation Comme nts VITAMIN B-12 (test code = 2840) 766 PG/ML Iam Ortiz EmilianoLIPID PANEL [ADDED]2022-01-27 00:00:00* Test Item Value Reference Range Interpretation Comme nts CHOLESTEROL (test code = 2210) 118 MG/DL TRIGLYCERIDES (test code = 2232) 105 MG/DL HDL CHOLESTEROL (test code = 2220) 41 MG/DL CALC LDL CHOL (test code = 2237) 58 MG/DL RISK RATIO LDL/HDL (test cod e = 2238) 1.41 RATIO Iam Ortiz EmilianoHEMOGLOBIN A1c [ADDED]2022-01-27 00:00:00* Test Item Value Reference Range Interpretation Comme nts HEMOGLOBIN A1c (test code = 21576) 9.6 % Iam Ortiz EmilianoCOMPREHENSIVE METABOLIC PANEL [ADDED]2022-01-27 00:00:00* Test Item Value Reference Range Interpretation Comme nts GLUCOSE (test code = 2217) 92 MG/DL BUN (test code = 2208) 16 MG/DL CREATININE (test code = 2214) 1.24 MG/DL eGFR (2020 CKD-EPI) (test co de = 60897) 49 ML/MIN/1.73 CALC BUN/CREAT (test code = 2235) 13 RATIO SODIUM (test code = 2231) 141 MEQ/L POTASSIUM (test code = 2228) 4.2 MEQ/L CHLORIDE (test code = 2215) 101 MEQ/L CARBON DIOXIDE (test code = 2206) 28 MEQ/L CALCIUM (test code = 2209) 11.0 MG/DL PROTEIN, TOTAL (test code = 2229) 7.1 G/DL ALBUMIN (test code = 2201) 4.1 G/DL CALC GLOBULIN (test code = 2240) 3.0 G/DL CALC A/G RATIO (test code = 2234) 1.4 RATIO BILIRUBIN, TOTAL (test code = 2207) 0.7 MG/DL ALKALINE PHOSPHATASE (test code = 2204) 100 U/L AST (test code = 2218) 16 U/L ALT (test code = 2219) 13 U/L Iam Oritz AustinLIPID PANEL [ADDED]2022-01-27 00:00:00* Test Item Value Reference Range Interpretation Comme nts CHOLESTEROL (test code = 2210) 118 MG/DL TRIGLYCERIDES (test code = 2232) 105 MG/DL HDL CHOLESTEROL (test code = 2220) 41 MG/DL CALC LDL CHOL (test code = 2237) 58 MG/DL RISK RATIO LDL/HDL (test cod e = 2238) 1.41 RATIO HEMOGLOBIN A1c [ADDED]2022-01-27 00:00:00* Test Item Value Reference Range Interpretation Comme nts HEMOGLOBIN A1c (test code = 22137) 9.6 % COMPREHENSIVE METABOLIC PANEL [ADDED]2022-01-27 00:00:00* Test Item Value Reference Range Interpretation Comme nts GLUCOSE (test code = 2217) 92 MG/DL BUN (test code = 2208) 16 MG/DL CREATININE (test code = 2214) 1.24 MG/DL eGFR (2020 CKD-EPI) (test co de = 44907) 49 ML/MIN/1.73 CALC BUN/CREAT (test code = 2235) 13 RATIO SODIUM (test code = 2231) 141 MEQ/L POTASSIUM (test code = 2228) 4.2 MEQ/L CHLORIDE (test code = 2215) 101 MEQ/L CARBON DIOXIDE (test code = 2206) 28 MEQ/L CALCIUM (test code = 2209) 11.0 MG/DL PROTEIN, TOTAL (test code = 2229) 7.1 G/DL ALBUMIN (test code = 2201) 4.1 G/DL CALC GLOBULIN (test code = 2240) 3.0 G/DL CALC A/G RATIO (test code = 2234) 1.4 RATIO BILIRUBIN, TOTAL (test code = 2207) 0.7 MG/DL ALKALINE PHOSPHATASE (test code = 2204) 100 U/L AST (test code = 2218) 16 U/L ALT (test code = 2219) 13 U/L VITAMIN B-12 [ADDED]2022-01-27 00:00:00* Test Item Value Reference Range Interpretation Comme kris VITAMIN B-12 (test code = 2840) 766 PG/ML Iam CummingsVITAMIN B-12 [ADDED]2022-01-27 00:00:00* Test Item Value Reference Range Interpretation Comme kris VITAMIN B-12 (test code = 2840) 766 PG/ML LIPID PANEL [ADDED]2022-01-27 00:00:00* Test Item Value Reference Range Interpretation Comme nts CHOLESTEROL (test code = 2210) 118 MG/DL TRIGLYCERIDES (test code = 2232) 105 MG/DL HDL CHOLESTEROL (test code = 2220) 41 MG/DL CALC LDL CHOL (test code = 2237) 58 MG/DL RISK RATIO LDL/HDL (test cod e = 2238) 1.41 RATIO Iam CummingsHEMOGLOBIN A1c [ADDED]2022-01-27 00:00:00* Test Item Value Reference Range Interpretation Comme kris HEMOGLOBIN A1c (test code = 74439) 9.6 % Iam CummingsARTHRITIS [id number] 12:01:52* Test Item Value Reference Range Interpretation Comme kris RHEUMATOID FACTOR, QUANT (test code = 3502) <10 IU/ML <14 URIC ACID (test code = 2233) 4.4 MG/DL 2.7-6.1 SEDIMENTATION RATE (test code = 1017) 2 MM/HOUR 0-20 ANTI-NUCLEAR ANTIBODIES (test code = 3506) NEGATIVE NEGATIVE Methodology is I ndirect Immunofluorescent Assay (IFA) with a titering system using Coi6000 cells (Hep2 cells transfected with SS-A/Ro). UNLESS OTHERWISE INDICATED, ALL TESTING PERFORMED ATCLINICAL PATHOLOGY [employer] [address] [place] [address] FIELD SERVICE SUPERVISOR: JOSSIE MCLAIN M.D. CLIA NUMBER [id number] [facility] [place]. [id number] HEMOGLOBIN [id number] 08:47:37* Test Item Value Reference Range Interpretation Comme nts HEMOGLOBIN A1c (test code = 79818) 9.1 % 4.2-5.6 H [employer] GUIDELINES FOR HGB A1C: PREDIABETES/INCREASED RISK . . . . . . . 5.7-6.4% DIAGNOSIS OF DIABETES . . . . . . . . . >=6.5% WITH CONFIRMATION OR APPROPRIATE SYMPTOMS NOTE: ASSAY MAY BE AFFECTED BY HEMOGLOBINOPATHIES (SICKLE CELL ANEMIA, S-C DISEASE, OTHERS) OR ARTIFICIALLY LOWERED BY DECREASED RED CELL SURVIVAL (HEMOLYTIC ANEMIAS, BLOOD LOSS, ETC.). CONSIDER ALTERNATE TESTING OR LABORATORY CONSULTATION. HEMOGLOBIN A1c [ADDED]2021-10-22 00:00:00* Test Item Value Reference Range Interpretation Comme kris HEMOGLOBIN A1c (test code = 09206) 9.1 % Iam CummingsARTHRITIS PROFILE [ADDED]2021-10-22 00:00:00* Test Item Value Reference Range Interpretation Comme nts RHEUMATOID FACTOR, QUANT (te st code = 3502) <10 IU/ML URIC ACID (test code = 2233) 4.4 MG/DL SEDIMENTATION RATE (test cod e = 1017) 2 MM/HOUR ANTI-NUCLEAR ANTIBODIES (oleksandr t code = 3506) NEGATIVE Iam CummingsHEMOGLOBIN A1c [ADDED]2021-10-22 00:00:00* Test Item Value Reference Range Interpretation Comme kris HEMOGLOBIN A1c (test code = 02725) 9.1 % ARTHRITIS PROFILE [ADDED]2021-10-22 00:00:00* Test Item Value Reference Range Interpretation Comme nts RHEUMATOID FACTOR, QUANT (te st code = 3502) <10 IU/ML URIC ACID (test code = 2233) 4.4 MG/DL SEDIMENTATION RATE (test cod e = 1017) 2 MM/HOUR ANTI-NUCLEAR ANTIBODIES (oleksandr t code = 3506) NEGATIVE HEMOGLOBIN A1c [ADDED]2021-10-22 00:00:00* Test Item Value Reference Range Interpretation Comme nts HEMOGLOBIN A1c (test code = 30417) 9.1 % ARTHRITIS PROFILE [ADDED]2021-10-22 00:00:00* Test Item Value Reference Range Interpretation Comme nts RHEUMATOID FACTOR, QUANT (te st code = 3502) <10 IU/ML URIC ACID (test code = 2233) 4.4 MG/DL SEDIMENTATION RATE (test cod e = 1017) 2 MM/HOUR ANTI-NUCLEAR ANTIBODIES (oleksandr t code = 3506) NEGATIVE HEMOGLOBIN A1c [ADDED]2021-10-22 00:00:00* Test Item Value Reference Range Interpretation Comme nts HEMOGLOBIN A1c (test code = 02722) 9.1 % Iam Ortiz AustinARTHRITIS PROFILE [ADDED]2021-10-22 00:00:00* Test Item Value Reference Range Interpretation Comme nts RHEUMATOID FACTOR, QUANT (te st code = 3502) <10 IU/ML URIC ACID (test code = 2233) 4.4 MG/DL SEDIMENTATION RATE (test cod e = 1017) 2 MM/HOUR ANTI-NUCLEAR ANTIBODIES (oleksandr t code = 3506) NEGATIVE Iam CummingsHEMOGLOBIN [id number] 03:50:25* Test Item Value Reference Range Interpretation Comme nts HEMOGLOBIN A1c (test code = 48358) 9.3 % 4.2-5.6 H [employer] GUIDELINES FOR HGB A1C: PREDIABETES/INCREASED RISK . . . . . . . 5.7-6.4% DIAGNOSIS OF DIABETES . . . . . . . . . >=6.5% WITH CONFIRMATION OR APPROPRIATE SYMPTOMS NOTE: ASSAY MAY BE AFFECTED BY HEMOGLOBINOPATHIES (SICKLE CELL ANEMIA, S-C DISEASE, OTHERS) OR ARTIFICIALLY LOWERED BY DECREASED RED CELL SURVIVAL (HEMOLYTIC ANEMIAS, BLOOD LOSS, ETC.). CONSIDER ALTERNATE TESTING OR LABORATORY CONSULTATION. LIPID [id number] 03:42:45* Test Item Value Reference Range Interpretation Comme nts CHOLESTEROL (test code = 2210) 134 MG/DL <200 TRIGLYCERIDES (test code = 2232) 83 MG/DL <150 HDL CHOLESTEROL (test code = 2220) 47 MG/DL >39 CALC LDL CHOL (test code = 2237) 70 MG/DL <100 NOTE: CALCULATED LDL IS BASED ON ADARSH-URBAN METHOD WHICHINCLUDES ADJUSTABLE TRIGLYCERIDE:VLDL CHOLESTEROL RATIO.THIS FACTOR VARIES BY MEASURED TRIGLYCERIDE AND NON-HDLCHOLESTEROL CONCENTRATIONS WITH INCREASED CALCULATED LDL SEENIN HIGHER TRIGLYCERIDE OR LOWER NON-HDL SPECIMENS. FOR MOREINFORMATION, SEE CLIENT ANNOUNCEMENT AT [email or web address] RISK RATIO LDL/HDL (test code = 2238) 1.49 RATIO <3.22 COMPREHENSIVE METABOLIC [id number] 03:42:45* Test Item Value Reference Range Interpretation Comme nts GLUCOSE (test code = 2217) 183 MG/DL 70-99 H BUN (test code = 2208) 13 MG/DL 8-23 CREATININE (test code = 2214) 0.76 MG/DL 0.60-1.30 EFFECTIVE 2020, [facility] HAS IMPLEMENTED THE NKF-ASN RECOMMENDED KD-EPI EGFR REFIT CALCULATION THAT DOES NOT INCLUDE A COEFFICIENT FORRACE. FOR MORE INFORMATION, SEE ANNOUNCEMENT [email or web address] (2020 CKD-EPI) (test code = 82699) 89 ML/MIN/1.73 >60 CALC BUN/CREAT (test code = 2235) 17 RATIO 6-28 SODIUM (test code = 223) 138 MEQ/L 133-146 POTASSIUM (test code = 2228) 4.4 MEQ/L 3.5-5.4 CHLORIDE (test code = 2215) 100 MEQ/L 95-107 CARBON DIOXIDE (test code = 2206) 28 MEQ/L 19-31 CALCIUM (test code = 2209) 10.3 MG/DL 8.5-10.5 PROTEIN, TOTAL (test code = 2229) 7.2 G/DL 6.1-8.3 ALBUMIN (test code = 2201) 4.4 G/DL 3.5-5.2 CALC GLOBULIN (test code = 2240) 2.8 G/DL 1.9-3.7 CALC A/G RATIO (test code = 223) 1.6 RATIO 1.0-2.6 BILIRUBIN, TOTAL (test code = 2207) 0.4 MG/DL See_Comment [Automated me ssage] The system which generated this result transmitted reference range: <=1.2. The reference range was not used to interpret this result as normal/abnormal. ALKALINE PHOSPHATASE (test code = 2204) 94 U/L 40-140 AST (test code = 2218) 10 U/L 9-40 ALT (test code = 2219) 15 U/L 5-40 UNLESS OTHERWISE INDICATED, ALL TESTING PERFORMED ATCLINSend [employer] Now PATHOLOGY [employer] [address] [place] [address] FIELD SERVICE SUPERVISOR: JOSSIE MCLAIN M.D. CLIA NUMBER [id number] [facility] [place]. [id number] HEMOGLOBIN [id number] 00:00:00* Test Item Value Reference Range Interpretation Comme nts HEMOGLOBIN A1c (test code = 75864) 9.3 % Iam CummingsLIPID [id number] 00:00:00* Test Item Value Reference Range Interpretation Comme nts CHOLESTEROL (test code = 2210) 134 MG/DL TRIGLYCERIDES (test code = 2232) 83 MG/DL HDL CHOLESTEROL (test code = 2220) 47 MG/DL CALC LDL CHOL (test code = 2237) 70 MG/DL RISK RATIO LDL/HDL (test cod e = 2238) 1.49 RATIO Iam CummingsHEMOGLOBIN [id number] 00:00:00* Test Item Value Reference Range Interpretation Comme nts HEMOGLOBIN A1c (test code = 97593) 9.3 % LIPID [id number] 00:00:00* Test Item Value Reference Range Interpretation Comme nts CHOLESTEROL (test code = 2210) 134 MG/DL TRIGLYCERIDES (test code = 2232) 83 MG/DL HDL CHOLESTEROL (test code = 2220) 47 MG/DL CALC LDL CHOL (test code = 2237) 70 MG/DL RISK RATIO LDL/HDL (test cod e = 2238) 1.49 RATIO COMPREHENSIVE METABOLIC [id number] 00:00:00* Test Item Value Reference Range Interpretation Comme nts GLUCOSE (test code = 2217) 183 MG/DL BUN (test code = 2208) 13 MG/DL CREATININE (test code = 2214) 0.76 MG/DL eGFR (2020 CKD-EPI) (test co de = 42072) 89 ML/MIN/1.73 CALC BUN/CREAT (test code = 2235) 17 RATIO SODIUM (test code = 2231) 138 MEQ/L POTASSIUM (test code = 2228) 4.4 MEQ/L CHLORIDE (test code = 2215) 100 MEQ/L CARBON DIOXIDE (test code = 2206) 28 MEQ/L CALCIUM (test code = 2209) 10.3 MG/DL PROTEIN, TOTAL (test code = 2229) 7.2 G/DL ALBUMIN (test code = 2201) 4.4 G/DL CALC GLOBULIN (test code = 2240) 2.8 G/DL CALC A/G RATIO (test code = 2234) 1.6 RATIO BILIRUBIN, TOTAL (test code = 2207) 0.4 MG/DL ALKALINE PHOSPHATASE (test code = 2204) 94 U/L AST (test code = 2218) 10 U/L ALT (test code = 2219) 15 U/L COMPREHENSIVE METABOLIC [id number] 00:00:00* Test Item Value Reference Range Interpretation Comme nts GLUCOSE (test code = 2217) 183 MG/DL BUN (test code = 2208) 13 MG/DL CREATININE (test code = 2214) 0.76 MG/DL eGFR (2020 CKD-EPI) (test co de = 43592) 89 ML/MIN/1.73 CALC BUN/CREAT (test code = 2235) 17 RATIO SODIUM (test code = 2231) 138 MEQ/L POTASSIUM (test code = 2228) 4.4 MEQ/L CHLORIDE (test code = 2215) 100 MEQ/L CARBON DIOXIDE (test code = 2206) 28 MEQ/L CALCIUM (test code = 2209) 10.3 MG/DL PROTEIN, TOTAL (test code = 2229) 7.2 G/DL ALBUMIN (test code = 2201) 4.4 G/DL CALC GLOBULIN (test code = 2240) 2.8 G/DL CALC A/G RATIO (test code = 2234) 1.6 RATIO BILIRUBIN, TOTAL (test code = 2207) 0.4 MG/DL ALKALINE PHOSPHATASE (test code = 2204) 94 U/L AST (test code = 2218) 10 U/L ALT (test code = 2219) 15 U/L Iam Ortiz AustinHEMOGLOBIN [id number] 00:00:00* Test Item Value Reference Range Interpretation Comme nts HEMOGLOBIN A1c (test code = 93094) 9.3 % LIPID [id number] 00:00:00* Test Item Value Reference Range Interpretation Comme nts CHOLESTEROL (test code = 2210) 134 MG/DL TRIGLYCERIDES (test code = 2232) 83 MG/DL HDL CHOLESTEROL (test code = 2220) 47 MG/DL CALC LDL CHOL (test code = 2237) 70 MG/DL RISK RATIO LDL/HDL (test cod e = 2238) 1.49 RATIO COMPREHENSIVE METABOLIC [id number] 00:00:00* Test Item Value Reference Range Interpretation Comme nts GLUCOSE (test code = 2217) 183 MG/DL BUN (test code = 2208) 13 MG/DL CREATININE (test code = 2214) 0.76 MG/DL eGFR (2020 CKD-EPI) (test co de = 99075) 89 ML/MIN/1.73 CALC BUN/CREAT (test code = 2235) 17 RATIO SODIUM (test code = 2231) 138 MEQ/L POTASSIUM (test code = 2228) 4.4 MEQ/L CHLORIDE (test code = 2215) 100 MEQ/L CARBON DIOXIDE (test code = 2206) 28 MEQ/L CALCIUM (test code = 2209) 10.3 MG/DL PROTEIN, TOTAL (test code = 2229) 7.2 G/DL ALBUMIN (test code = 2201) 4.4 G/DL CALC GLOBULIN (test code = 2240) 2.8 G/DL CALC A/G RATIO (test code = 2234) 1.6 RATIO BILIRUBIN, TOTAL (test code = 2207) 0.4 MG/DL ALKALINE PHOSPHATASE (test code = 2204) 94 U/L AST (test code = 2218) 10 U/L ALT (test code = 2219) 15 U/L HEMOGLOBIN [id number] 00:00:00* Test Item Value Reference Range Interpretation Comme nts HEMOGLOBIN A1c (test code = 26528) 9.3 % Iam Angel AustinLIPID [id number] 00:00:00* Test Item Value Reference Range Interpretation Comme nts CHOLESTEROL (test code = 2210) 134 MG/DL TRIGLYCERIDES (test code = 2232) 83 MG/DL HDL CHOLESTEROL (test code = 2220) 47 MG/DL CALC LDL CHOL (test code = 2237) 70 MG/DL RISK RATIO LDL/HDL (test cod e = 2238) 1.49 RATIO Iam CummingsCOMPREHENSIVE METABOLIC [id number] 00:00:00* Test Item Value Reference Range Interpretation Comme nts GLUCOSE (test code = 2217) 183 MG/DL BUN (test code = 2208) 13 MG/DL CREATININE (test code = 2214) 0.76 MG/DL eGFR (2020 CKD-EPI) (test co de = 41989) 89 ML/MIN/1.73 CALC BUN/CREAT (test code = 2235) 17 RATIO SODIUM (test code = 2231) 138 MEQ/L POTASSIUM (test code = 2228) 4.4 MEQ/L CHLORIDE (test code = 2215) 100 MEQ/L CARBON DIOXIDE (test code = 2206) 28 MEQ/L CALCIUM (test code = 2209) 10.3 MG/DL PROTEIN, TOTAL (test code = 2229) 7.2 G/DL ALBUMIN (test code = 2201) 4.4 G/DL CALC GLOBULIN (test code = 2240) 2.8 G/DL CALC A/G RATIO (test code = 2234) 1.6 RATIO BILIRUBIN, TOTAL (test code = 2207) 0.4 MG/DL ALKALINE PHOSPHATASE (test code = 2204) 94 U/L AST (test code = 2218) 10 U/L ALT (test code = 2219) 15 U/L Iam F [place] MyersCOMPREHENSIVE METABOL[place] [id number] 00:00:00* Test Item Value Reference Range Interpretation Comme nts GLUCOSE (test code = 2217) 205 MG/DL BUN (test code = 2208) 13 MG/DL CREATININE (test code = 2214) 0.71 MG/DL eGFR AMER. (test cod e = 56414) 106 ML/MIN/1.73 eGFR NON- AMER. (test code = 82075) 91 ML/MIN/1.73 CALC BUN/CREAT (test code = 2235) 18 RATIO SODIUM (test code = 2231) 141 MEQ/L POTASSIUM (test code = 2228) 4.1 MEQ/L CHLORIDE (test code = 2215) 101 MEQ/L CARBON DIOXIDE (test code = 2206) 28 MEQ/L CALCIUM (test code = 2209) 10.4 MG/DL PROTEIN, TOTAL (test code = 2229) 6.9 G/DL ALBUMIN (test code = 2201) 4.2 G/DL CALC GLOBULIN (test code = 2240) 2.7 G/DL CALC A/G RATIO (test code = 2234) 1.6 RATIO BILIRUBIN, TOTAL (test code = 2207) 0.3 MG/DL ALKALINE PHOSPHATASE (test code = 2204) 95 U/L AST (test code = 2218) 11 U/L ALT (test code = 2219) 15 U/L Iam F AustinCOMPREHENSIVE METABOLIC [id number] 00:00:00* Test Item Value Reference Range Interpretation Comme nts GLUCOSE (test code = 2217) 205 MG/DL BUN (test code = 2208) 13 MG/DL CREATININE (test code = 2214) 0.71 MG/DL eGFR AMER. (test cod e = 96284) 106 ML/MIN/1.73 eGFR NON- AMER. (test code = 44250) 91 ML/MIN/1.73 CALC BUN/CREAT (test code = 2235) 18 RATIO SODIUM (test code = 2231) 141 MEQ/L POTASSIUM (test code = 2228) 4.1 MEQ/L CHLORIDE (test code = 2215) 101 MEQ/L CARBON DIOXIDE (test code = 2206) 28 MEQ/L CALCIUM (test code = 2209) 10.4 MG/DL PROTEIN, TOTAL (test code = 2229) 6.9 G/DL ALBUMIN (test code = 2201) 4.2 G/DL CALC GLOBULIN (test code = 2240) 2.7 G/DL CALC A/G RATIO (test code = 2234) 1.6 RATIO BILIRUBIN, TOTAL (test code = 2207) 0.3 MG/DL ALKALINE PHOSPHATASE (test code = 2204) 95 U/L AST (test code = 2218) 11 U/L ALT (test code = 2219) 15 U/L COMPREHENSIVE METABOLIC [id number] 00:00:00* Test Item Value Reference Range Interpretation Comme nts GLUCOSE (test code = 2217) 205 MG/DL BUN (test code = 2208) 13 MG/DL CREATININE (test code = 2214) 0.71 MG/DL eGFR AMER. (test cod e = 48386) 106 ML/MIN/1.73 eGFR NON- AMER. (test code = 54159) 91 ML/MIN/1.73 CALC BUN/CREAT (test code = 2235) 18 RATIO SODIUM (test code = 2231) 141 MEQ/L POTASSIUM (test code = 2228) 4.1 MEQ/L CHLORIDE (test code = 2215) 101 MEQ/L CARBON DIOXIDE (test code = 2206) 28 MEQ/L CALCIUM (test code = 2209) 10.4 MG/DL PROTEIN, TOTAL (test code = 2229) 6.9 G/DL ALBUMIN (test code = 2201) 4.2 G/DL CALC GLOBULIN (test code = 2240) 2.7 G/DL CALC A/G RATIO (test code = 2234) 1.6 RATIO BILIRUBIN, TOTAL (test code = 2207) 0.3 MG/DL ALKALINE PHOSPHATASE (test code = 2204) 95 U/L AST (test code = 2218) 11 U/L ALT (test code = 2219) 15 U/L COMPREHENSIVE METABOLIC [id number] 00:00:00* Test Item Value Reference Range Interpretation Comme nts GLUCOSE (test code = 2217) 205 MG/DL BUN (test code = 2208) 13 MG/DL CREATININE (test code = 2214) 0.71 MG/DL eGFR AMER. (test cod e = 62529) 106 ML/MIN/1.73 eGFR NON- AMER. (test code = 83365) 91 ML/MIN/1.73 CALC BUN/CREAT (test code = 2235) 18 RATIO SODIUM (test code = 2231) 141 MEQ/L POTASSIUM (test code = 2228) 4.1 MEQ/L CHLORIDE (test code = 2215) 101 MEQ/L CARBON DIOXIDE (test code = 2206) 28 MEQ/L CALCIUM (test code = 2209) 10.4 MG/DL PROTEIN, TOTAL (test code = 2229) 6.9 G/DL ALBUMIN (test code = 2201) 4.2 G/DL CALC GLOBULIN (test code = 2240) 2.7 G/DL CALC A/G RATIO (test code = 2234) 1.6 RATIO BILIRUBIN, TOTAL (test code = 2207) 0.3 MG/DL ALKALINE PHOSPHATASE (test code = 2204) 95 U/L AST (test code = 2218) 11 U/L ALT (test code = 2219) 15 U/L Iam Ortiz [place]HEMOGLOBIN [id number] 00:00:00* Test Item Value Reference Range Interpretation Comme nts HEMOGLOBIN A1c (test code = 51474) 8.6 % Iam F AustinHEMOGLOBIN [id number] 00:00:00* Test Item Value Reference Range Interpretation Comme nts HEMOGLOBIN A1c (test code = 94273) 8.6 % HEMOGLOBIN [id number] 00:00:00* Test Item Value Reference Range Interpretation Comme nts HEMOGLOBIN A1c (test code = 45219) 8.6 % HEMOGLOBIN [id number] 00:00:00* Test Item Value Reference Range Interpretation Comme nts HEMOGLOBIN A1c (test code = 88168) 8.6 % Iam Ortiz AustinHEMOGLOBIN [id number] 00:00:00* Test Item Value Reference Range Interpretation Comme nts HEMOGLOBIN A1c (test code = 98321) 8.3 % Iam Ortiz AustinLIPID [id number] 00:00:00* Test Item Value Reference Range Interpretation Comme nts CHOLESTEROL (test code = 2210) 113 MG/DL TRIGLYCERIDES (test code = 2232) 103 MG/DL HDL CHOLESTEROL (test code = 2220) 41 MG/DL CALC LDL CHOL (test code = 2237) 53 MG/DL RISK RATIO LDL/HDL (test cod e = 2238) 1.29 RATIO Iam Ortiz AustinVITAMIN [id number] 00:00:00* Test Item Value Reference Range Interpretation Comme nts VITAMIN B-12 (test code = 2840) 697 PG/ML Iam Ortiz AustinHEMOGLOBIN [id number] 00:00:00* Test Item Value Reference Range Interpretation Comme nts HEMOGLOBIN A1c (test code = 36033) 8.3 % LIPID [id number] 00:00:00* Test Item Value Reference Range Interpretation Comme nts CHOLESTEROL (test code = 2210) 113 MG/DL TRIGLYCERIDES (test code = 2232) 103 MG/DL HDL CHOLESTEROL (test code = 2220) 41 MG/DL CALC LDL CHOL (test code = 2237) 53 MG/DL RISK RATIO LDL/HDL (test cod e = 2238) 1.29 RATIO VITAMIN [id number] 00:00:00* Test Item Value Reference Range Interpretation Comme nts VITAMIN B-12 (test code = 2840) 697 PG/ML HEMOGLOBIN [id number] 00:00:00* Test Item Value Reference Range Interpretation Comme nts HEMOGLOBIN A1c (test code = 81007) 8.3 % LIPID [id number] 00:00:00* Test Item Value Reference Range Interpretation Comme nts CHOLESTEROL (test code = 2210) 113 MG/DL TRIGLYCERIDES (test code = 2232) 103 MG/DL HDL CHOLESTEROL (test code = 2220) 41 MG/DL CALC LDL CHOL (test code = 2237) 53 MG/DL RISK RATIO LDL/HDL (test cod e = 2238) 1.29 RATIO VITAMIN [id number] 00:00:00* Test Item Value Reference Range Interpretation Comme nts VITAMIN B-12 (test code = 2840) 697 PG/ML HEMOGLOBIN [id number] 00:00:00* Test Item Value Reference Range Interpretation Comme nts HEMOGLOBIN A1c (test code = 15128) 8.3 % Iam CummingsLIPID [id number] 00:00:00* Test Item Value Reference Range Interpretation Comme nts CHOLESTEROL (test code = 2210) 113 MG/DL TRIGLYCERIDES (test code = 2232) 103 MG/DL HDL CHOLESTEROL (test code = 2220) 41 MG/DL CALC LDL CHOL (test code = 2237) 53 MG/DL RISK RATIO LDL/HDL (test cod e = 2238) 1.29 RATIO Iam Ortiz AustinVITAMIN [id number] 00:00:00* Test Item Value Reference Range Interpretation Comme nts VITAMIN B-12 (test code = 2840) 697 PG/ML Iam Ortiz AustinOCCULT BLD,FECAL,IMMUNOASSAY [id number] 00:00:00* Test Item Value Reference Range Interpretation Comme nts OCCULT BLD, FECAL (test code = 24832) NEGATIVE Iam Ortiz AustinOCCULT BLD,FECAL,IMMUNOASSAY [id number] 00:00:00* Test Item Value Reference Range Interpretation Comme nts OCCULT BLD, FECAL (test code = 05116) NEGATIVE OCCULT BLD,FECAL,IMMUNOASSAY [id number] 00:00:00* Test Item Value Reference Range Interpretation Comme nts OCCULT BLD, FECAL (test code = 91489) NEGATIVE OCCULT BLD,FECAL,IMMUNOASSAY [id number] 00:00:00* Test Item Value Reference Range Interpretation Comme nts OCCULT BLD, FECAL (test code = 90639) NEGATIVE Iam CummingsLIPID [id number] 00:00:00* Test Item Value Reference Range Interpretation Comme nts CHOLESTEROL (test code = 2210) 127 MG/DL TRIGLYCERIDES (test code = 2232) 147 MG/DL HDL CHOLESTEROL (test code = 2220) 47 MG/DL CALC LDL CHOL (test code = 2237) 57 MG/DL RISK RATIO LDL/HDL (test cod e = 2238) 1.21 RATIO Iam CummingsVITAMIN [id number] 00:00:00* Test Item Value Reference Range Interpretation Comme nts VITAMIN B-12 (test code = 2840) 169 PG/ML Iam CummingsCBC W/AUTO [id number] 00:00:00* Test Item Value Reference Range Interpretation Comme nts WBC (test code = 1001) 7.5 K/UL RBC (test code = 1002) 5.09 M/UL HEMOGLOBIN (test code = 1003) 13.6 G/DL HEMATOCRIT (test code = 1004) 40.9 % MCV (test code = 1005) 80.4 fL MCH (test code = 1006) 26.7 PG MCHC (test code = 1007) 33.3 G/DL RDW (test code = 1038) 13.5 % NEUTROPHILS (test code = 1008) 56.9 % LYMPHOCYTES (test code = 1010) 33.0 % MONOCYTES (test code = 1011) 6.1 % EOSINOPHILS (test code = 1012) 3.3 % BASOPHILS (test code = 1013) 0.7 % PLATELET COUNT (test code = 1015) 266 K/UL Iam CummingsHEMOGLOBIN [id number] 00:00:00* Test Item Value Reference Range Interpretation Comme kris HEMOGLOBIN A1c (test code = 41800) 9.9 % Iam CummingsCBC W/AUTO [id number] 00:00:00* Test Item Value Reference Range Interpretation Comme nts WBC (test code = 1001) 7.5 K/UL RBC (test code = 1002) 5.09 M/UL HEMOGLOBIN (test code = 1003) 13.6 G/DL HEMATOCRIT (test code = 1004) 40.9 % MCV (test code = 1005) 80.4 fL MCH (test code = 1006) 26.7 PG MCHC (test code = 1007) 33.3 G/DL RDW (test code = 1038) 13.5 % NEUTROPHILS (test code = 1008) 56.9 % LYMPHOCYTES (test code = 1010) 33.0 % MONOCYTES (test code = 1011) 6.1 % EOSINOPHILS (test code = 1012) 3.3 % BASOPHILS (test code = 1013) 0.7 % PLATELET COUNT (test code = 1015) 266 K/UL HEMOGLOBIN [id number] 00:00:00* Test Item Value Reference Range Interpretation Comme nts HEMOGLOBIN A1c (test code = 88919) 9.9 % LIPID [id number] 00:00:00* Test Item Value Reference Range Interpretation Comme nts CHOLESTEROL (test code = 2210) 127 MG/DL TRIGLYCERIDES (test code = 2232) 147 MG/DL HDL CHOLESTEROL (test code = 2220) 47 MG/DL CALC LDL CHOL (test code = 2237) 57 MG/DL RISK RATIO LDL/HDL (test cod e = 2238) 1.21 RATIO VITAMIN [id number] 00:00:00* Test Item Value Reference Range Interpretation Comme nts VITAMIN B-12 (test code = 2840) 169 PG/ML LIPID [id number] 00:00:00* Test Item Value Reference Range Interpretation Comme nts CHOLESTEROL (test code = 2210) 127 MG/DL TRIGLYCERIDES (test code = 2232) 147 MG/DL HDL CHOLESTEROL (test code = 2220) 47 MG/DL CALC LDL CHOL (test code = 2237) 57 MG/DL RISK RATIO LDL/HDL (test cod e = 2238) 1.21 RATIO Iam Ortiz AustinCBC W/AUTO [id number] 00:00:00* Test Item Value Reference Range Interpretation Comme nts WBC (test code = 1001) 7.5 K/UL RBC (test code = 1002) 5.09 M/UL HEMOGLOBIN (test code = 1003) 13.6 G/DL HEMATOCRIT (test code = 1004) 40.9 % MCV (test code = 1005) 80.4 fL MCH (test code = 1006) 26.7 PG MCHC (test code = 1007) 33.3 G/DL RDW (test code = 1038) 13.5 % NEUTROPHILS (test code = 1008) 56.9 % LYMPHOCYTES (test code = 1010) 33.0 % MONOCYTES (test code = 1011) 6.1 % EOSINOPHILS (test code = 1012) 3.3 % BASOPHILS (test code = 1013) 0.7 % PLATELET COUNT (test code = 1015) 266 K/UL VITAMIN [id number] 00:00:00* Test Item Value Reference Range Interpretation Comme nts VITAMIN B-12 (test code = 2840) 169 PG/ML Iam CummingsHEMOGLOBIN [id number] 00:00:00* Test Item Value Reference Range Interpretation Comme nts HEMOGLOBIN A1c (test code = 53299) 9.9 % LIPID [id number] 00:00:00* Test Item Value Reference Range Interpretation Comme nts CHOLESTEROL (test code = 2210) 127 MG/DL TRIGLYCERIDES (test code = 2232) 147 MG/DL HDL CHOLESTEROL (test code = 2220) 47 MG/DL CALC LDL CHOL (test code = 2237) 57 MG/DL RISK RATIO LDL/HDL (test cod e = 2238) 1.21 RATIO VITAMIN [id number] 00:00:00* Test Item Value Reference Range Interpretation Comme nts VITAMIN B-12 (test code = 2840) 169 PG/ML CBC W/AUTO [id number] 00:00:00* Test Item Value Reference Range Interpretation Comme nts WBC (test code = 1001) 7.5 K/UL RBC (test code = 1002) 5.09 M/UL HEMOGLOBIN (test code = 1003) 13.6 G/DL HEMATOCRIT (test code = 1004) 40.9 % MCV (test code = 1005) 80.4 fL MCH (test code = 1006) 26.7 PG MCHC (test code = 1007) 33.3 G/DL RDW (test code = 1038) 13.5 % NEUTROPHILS (test code = 1008) 56.9 % LYMPHOCYTES (test code = 1010) 33.0 % MONOCYTES (test code = 1011) 6.1 % EOSINOPHILS (test code = 1012) 3.3 % BASOPHILS (test code = 1013) 0.7 % PLATELET COUNT (test code = 1015) 266 K/UL Iam CummingsHEMOGLOBIN [id number] 00:00:00* Test Item Value Reference Range Interpretation Comme nts HEMOGLOBIN A1c (test code = 19254) 9.9 % Iam Cummings Notes Date/Time Note Provider Source Iam Cummings [facility]2024-09-27 16:34:01 Pt reviewed xray results with Kristin Hartley NP @ 1305. Kala Braun RN 04/13/2024 4:34 PM Kala Braun RNPaulding [facility] [id number] 08:35:36 Patient is calling, inquiring of the final status of her chest xray. Advised patient that we would follow up with her per last encounter message. Siobhan PayneST. [facility] - [id number] 18:06:47 Pt was informed that we are waiting on the final report to comeback and when it does we will give her a call. Ruthy Cantu MAPaulding [facility] [id number] 18:02:27 Nia Moreno is a 63 year old female Pt requesting results of her xray. Please contact patient. [phone] (home) Philly IrwinUK [id number] 00:00:00 Iam [facility]
[2024-04-27] MEDS ORDERED: FUROSEMIDE 40 MG/4 ML VIAL ONE ×2 (05:52→12:53)
[2024-04-27 06:23] LABS: Absolute Basophils 0.1 K/uL (0-0.5); Absolute Eosinophils 0.1 K/uL (0-0.5); Absolute Lymphocytes (CBC) 1.3 K/uL (0.7-4.9); Absolute Monocytes 0.5 K/uL (0.1-1.3); Absolute Neutrophil 7.4 K/uL (1.8-8.0); Basophils % 1.1 % (0-1.3); Eosinophils % 0.8 % (0-4.4); Hematocrit 28.8 % (36.0-45.0); Hemoglobin 8.6 g/dL (12.0-15.0); MCH 17.8 pg (27.0-35.0); MCHC 29.8 g/dL (32.0-36.0); MCV 59.7 fL (80-100); MPV 8.3 fL (7.6-11.3); Monocytes % 5.6 % (3.3-12.3); Neutrophils % 78.5 % (41.7-73.7); Nucleated Red Blood Cells % 0.2 % (0-0); Platelets 372 thou/uL (152-406); RBC Red Blood Cell Count 4.83 M/uL (3.86-4.86); Red Cell Distribution Width 21.2 % (12.1-15.2)
[2024-04-27 06:24] LABS: PT Prothrombin Time 13.9 SECONDS (9.4-12.5); Protime INR 1.25
[2024-04-27 06:39] LABS: Sqamous Epithelial <5 /HPF (None Seen); Urine Bacteria <20 /HPF (<20); Urine Bilirubin NEGATIVE (Negative); Urine Blood Negative (Negative); Urine Clarity Clear (Clear); Urine Color Colorless (Yellow); Urine Culture Reflex Order NOT NEEDED; Urine Glucose NEGATIVE (Negative); Urine Ketones NEGATIVE (Negative); Urine Micro Reflex YN NO BILL MICROSCOPIC; Urine Nitrite NEGATIVE (Negative); Urine Protein 1+ (Negative); Urine RBC <5 /HPF (None Seen); Urine Urobilinogen Normal (Normal); Urine pH 6.5 (5.0-7.0)
[2024-04-27 07:02] LABS: Albumin 3.3 g/dL (3.4-5.0); Albumin/Globulin Ratio 0.9 (1.1-1.8); Anion Gap 10.3 mEq/L (5.0-15.0); Bilirubin Direct 0.3 mg/dL (0-0.2); Bilirubin Indirect, Calculated 0.4 mg/dL (0.2-0.8); Bilirubin Total 0.7 mg/dL (0.2-1.0); Globulin 3.6 g/dL (2.3-3.5); Magnesium 1.4 mg/dL (1.6-2.4); Potassium 3.3 mEq/L (3.5-5.1); Protein, Total 6.9 g/dL (6.4-8.2)
[2024-04-27 07:04] LABS: Thyroid Stimulating Hormone 4.13 uIU/mL (0.358-3.740)
[2024-04-27 07:11] LABS: Anisocytosis 1+; Blood Morphology Comment NOTED (NOT SEEN); Platelet Estimate ADEQ; White Blood Cell Scan OK (OK)
[2024-04-27 07:12] LABS: Hypochromasia 3+; Microcytosis 3+
--- NOTE | 2024-04-27 07:18 | RAD REPORT ---
EXAM DESCRIPTION: Chest Single View CLINICAL HISTORY: CONGESTION COMPARISON: None TECHNIQUE: Single AP view of the chest. FINDINGS: Cardiac loop recorder device noted. Lung volumes adequate. Cardiac silhouette is enlarged. No pneumothorax. No large pleural effusion. Bilateral interstitial predominant airspace disease. No acute bony finding. IMPRESSION: 1. Bilateral interstitial predominant airspace disease, could represent pulmonary edema versus atyp ical/viral pneumonia. 2. Enlarged cardiac silhouette. Electronically signed by: Linh Christian MD 04/27/2024 06:40 AM CDT Z9 Due to temporary technical issues with the PACS/[employer] reporting system, reports are being cailin d by the in-house radiologist without review as a courtesy to ensure prompt reporting the interpreting radiologist is fully responsible for the content of the report. Transcribed Date/Time: 04/27/2024 7:18 AM
--- NOTE | 2024-04-27 07:23 | EDPHYS ---
Physician Documentation [facility] Name: Dionne Vega Age: 63 yrs Sex: Female : 1960 Arrival Date: 04/27/2024 Time: 05:35 Bed 6 Private MD: ED Physician Bassam Ness HPI: 04/27 05:46 This 63 yrs old Female presents to ER via Unassigned with complaints of sp4 shortness of breath and weight gain. Historical: - Allergies: 06:04 No Known Allergies; ha1 - PMHx: 06:04 Hypertensive disorder; Irregular heart rate; ha1 - Immunization history:: Adult Immunizations up to date. - Infectious Disease History:: Denies. - Family history:: not pertinent. - Social history:: Smoking status: Patient denies any tobacco usage or history of. ROS: 05:47 Constitutional: Negative for fever, chills, and weight loss, positive ROMERO, positive sp4 Bilateral lower extremity edema, positive weight gain 05:47 All other systems are negative, Exam: 05:47 Constitutional: This is a well developed, well nourished patient who is awake, alert, sp4 and in no acute distress. Head/Face: Normocephalic, atraumatic. Eyes: Pupils equal round and reactive to light, extra-ocular motions intact. Lids and lashes normal. Conjunctiva and sclera are not injected. Cornea within normal limits. Periorbital areas with no swelling, redness, or edema. ENT: Nares patent. No nasal discharge, no septal abnormalities noted. Tympanic membranes are normal and external auditory canals are clear. Oropharynx with no redness, swelling, or masses, exudates, or evidence of obstruction, uvula midline. Mucous membranes moist. Neck: Trachea midline, no thyromegaly or masses palpated, and no cervical lymphadenopathy. Supple, full range of motion without nuchal rigidity, or vertebral point tenderness. Chest/axilla: Normal chest wall appearance and motion. Nontender with no deformity. No lesions are appreciated. Cardiovascular: Regular rate and rhythm with a normal S1 and S2. No gallops, murmurs, or rubs. Normal PMI, no JVD. No pulse deficits. Respiratory: Lungs have equal breath sounds bilaterally, clear to auscultation and percussion. No rales, rhonchi or wheezes noted. No increased work of breathing, no retractions or nasal flaring. Abdomen/GI: Soft, with normal bowel sounds. No distension or tympany. No guarding or rebound. No evidence of tenderness throughout. Back: No spinal tenderness. No costovertebral tenderness. Skin: Warm, dry with normal turgor. Normal color with no rashes, no lesions, and no evidence of cellulitis. MS/ Extremity: Pulses equal, no cyanosis. Neurovascular intact. Full, normal range of motion. Positve bilateral mild to moderate lower extremity edema , without pitting Neuro: Awake and alert, GCS 15, oriented to person, place, time, and situation. Cranial nerves II-XII grossly intact. Motor strength 5/5 in all extremities. Sensory grossly intact. Psych: Awake, alert, with orientation to person, place and time. Behavior, mood, and affect are within normal limits 06:31 ECG was reviewed by the Attending Physician. 0 557 EKG normal sinus rhythm rate 80 sp4 multiple PVCs Vital Signs: 05:48 BP 194 / 95; Pulse 78; Resp 19 S; Temp 97.9(T); Pulse Ox 96% on 2 lpm NC; Weight 104.78 ha1 kg; Height 5 ft. 6 in. ; 06:12 BP 194 / 95; Pulse 81; Resp 28; Temp 98.3(O); Pulse Ox 96% on 2 lpm NC; Weight 104.78 mt4 kg; Height 5 ft. 6 in. ; Pain 0/10; 06:12 Body Mass Index 37.28 (104.78 kg, 167.64 cm) mt4 06:12 Pain Scale: Adult mt4 Giles Coma Score: 05:47 Eye Response: spontaneous(4). Motor Response: obeys commands(6). Verbal Response: sp4 oriented(5). Total: 15. 06:12 Eye Response: spontaneous(4). Motor Response: obeys commands(6). Verbal Response: mt4 oriented(5). Total: 15. MDM: 06:04 Patient medically screened. sp4 06:43 Differential diagnosis: Anemia Anxiety Reaction asthma, CHF exacerbation, Chronic sp4 Obstructive Pulmonary Disease Myocardial Infarction pneumonia. Data reviewed: vital signs, nurses notes, old medical records, lab test result(s), EKG, radiologic studies. Transition of care: After a detail discussion of the patient's case, care is transferred to Bassam Ness MD. 07:04 Transition of care: Care assumed from Chapincito Sharp MD. ec2 07:04 ED course: Patient signed out to me by previous physician, in brief arrives today for ec2 shortness of breath, likely following overload. Plan is to follow-up lab work and testing and admit for diuresis. . 07:17 ED course: Lab work remarkable for slight hyponatremia, slight hypokalemia. CBC shows ec2 slight anemia. LFTs are nonactionable. BNP elevated at 2200, troponin is elevated to 50, will give the patient full dose of aspirin. Will admit for diuresis, replenish potassium. Discussed case with hospitalist, pending admission. EKG independently reviewed and interpreted by me, shows normal sinus rhythm, rate of 80, no acute ST segment elevations, PVCs noted.. 07:20 ED course: Chest x-ray independently reviewed and interpreted by me, shows ec2 cardiomegaly, vascular congestion, no pleural effusion, no focal lung opacity noted.. 04/27 05:45 Order name: Basic Metabolic Panel; Complete Time: 07:16 sp4 04/27 05:45 Order name: CBC with Diff; Complete Time: 07:16 sp4 04/27 05:45 Order name: LFT's; Complete Time: 07:16 sp4 04/27 05:45 Order name: Magnesium; Complete Time: 07:16 sp4 04/27 05:45 Order name: NT PRO-BNP; Complete Time: 07:16 sp4 04/27 05:45 Order name: PT-INR; Complete Time: 06:32 sp4 04/27 05:45 Order name: Troponin HS; Complete Time: 07:16 sp4 04/27 05:46 Order name: TSH; Complete Time: 07:16 sp4 04/27 05:46 Order name: T4 Free; Complete Time: 07:16 sp4 04/27 05:46 Order name: Urinalysis W/Microscopic; Complete Time: 06:43 sp4 04/27 06:31 Order name: CBC Smear Scan; Complete Time: 07:16 EDMS 04/27 07:37 Order name: Troponin High Sensitivity EDMS 04/27 07:37 Order name: Troponin High Sensitivity EDMS 04/27 07:37 Order name: Troponin High Sensitivity EDPR 04/27 05:45 Order name: XRAY Chest (1 view) 4 04/27 07:37 Order name: Echo with Doppler EDPR 04/27 05:45 Order name: EKG; Complete Time: 05:46 sp4 04/27 05:45 Order name: Cardiac monitoring; Complete Time: 06:09 4 04/27 05:45 Order name: EKG - Nurse/Tech; Complete Time: 06: 4 04/27 05:45 Order name: IV Saline Lock; Complete Time: 06: 4 04/27 05:45 Order name: Labs collected and sent; Complete Time: 06: 4 04/27 05:45 Order name: O2 Per Protocol; Complete Time: 06: 4 04/27 05:45 Order name: O2 Sat Monitoring; Complete Time: 06: sp4 EC:31 Rate is 80 beats/min. Rhythm is regular, Normal Sinus Rhythm with Unifocal PVCs. QRS 4 Lamar is Normal. MS interval is normal. QRS interval is normal. QT interval is prolonged. No Q waves. T waves are Normal. No ST changes noted. Clinical impression: No evidence of ischemia. Interpreted by me. Reviewed by me. Administered Medications: 06:09 Drug: Furosemide IVP 40 mg IVP once; give over 2 minutes Route: IVP; Site: right ny4 antecubital; 06:31 Follow up: Response: No adverse reaction [facility] 08:30 Drug: Potassium Chloride PO 40 mEq PO once Route: PO; ph 08:30 Drug: Potassium Chloride IV 20 mEq IV at calculated rate once; administer over 1-2 ph hours Route: IV; Rate: calculated rate; Site: right antecubital; 08:30 Drug: Magnesium Sulfate IVPB 2 grams IVPB once over 2 hrs Route: IVPB; Infused Over: 2 ph hrs; Site: right antecubital; 08:30 Drug: Aspirin PO Chewable Tablet 324 mg PO once; 81 mg tablets x 4 Route: PO; ph Disposition: 07:23 Critical Care:. ec2 Disposition Summary: 04/27/24 07:23 Hospitalization Ordered Notes: Hospitalization Status: Inpatient Admission ec2 Provider: Benitez Delacruz ec2 Condition: Stable ec2 Problem: new ec2 Symptoms: have improved ec2 Bed/Room Type: Standard ec2 Location: Telemetry/MedSurg (Inpatient)(04/27/24 13:59) hb Room Assignment: 223(04/27/24 13:59) hb Diagnosis - Heart failure, unspecified ec2 Forms: - Medication Reconciliation Form ec2 - SBAR form ec2 - Leadership Thank You Letter ec2 Critical care time excluding procedures: 07:23 Critical care time: Bedside Care: 30 minutes. Total time: 30 minutes ec2 Signatures: Dispatcher [employer] EDKristofer Jansen, CATIE AVINA-Cla1 Alexus Benites, RN RN Elisabeth Martinez RN RN Lora Wright RN RN ap3 Kerry Hartley RN RN ha1 Chapincito Sharp MD MD sp4 Bassam Ness MD MD ec2 Mickie Daily RN RN mt4 Corrections: (The following items were deleted from the chart) 08:27 07:23 Telemetry/MedSurg (Inpatient) ec2 ap3 08:27 07:23 ec2 ap3 13:59 08:27 [facility] ER HOLD ap3 hb 13:59 08:27 ERHOLD- ap3 hb
--- NOTE | 2024-04-27 07:23 | ER ---
Nurse's Notes [facility] Name: Dionne Vega Age: 63 yrs Sex: Female : 1960 Arrival Date: 04/27/2024 Time: 05:35 Bed 6 Private MD: Diagnosis: Heart failure, unspecified Presentation: 04/27 05:48 Chief complaint: Patient states: SHORTNESS OF BREATH FOR THE PAST TWO WEEKS. 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 05:48 Coronavirus screen: Vaccine status: Patient reports being unvaccinated. Ebola Screen: ha1 No symptoms or risks identified at this time. Initial Sepsis Screen: Does the patient meet any 2 criteria? No. Patient's initial sepsis screen is negative. Does the patient have a suspected source of infection? No. Patient's initial sepsis screen is negative. Risk Assessment: Do you want to hurt yourself or someone else? Patient reports no desire to harm self or others. Onset of symptoms was April 27, 2024. 05:48 Method Of Arrival: Ambulatory ha1 05:48 Acuity: JUAN CARLOS 3 ha1 Triage Assessment: 05:48 General: Appears uncomfortable, Behavior is anxious. Pain: Denies pain. Neuro: Level of ha1 Consciousness is awake, alert, obeys commands, Oriented to person, place, time, situation. Cardiovascular: Capillary refill < 3 seconds Patient's skin is warm and dry. Respiratory: Airway is patent Respiratory effort is even, unlabored, Respiratory pattern is regular, symmetrical. GI: Abdomen is round obese. : No signs and/or symptoms were reported regarding the genitourinary system. Musculoskeletal: Circulation, motion, and sensation intact. Range of motion: intact in all extremities. Historical: - Allergies: 06:04 No Known Allergies; ha1 - PMHx: 06:04 Hypertensive disorder; Irregular heart rate; ha1 - Immunization history:: Adult Immunizations up to date. - Infectious Disease History:: Denies. - Family history:: not pertinent. - Social history:: Smoking status: Patient denies any tobacco usage or history of. Screenin:07 Abuse screen: Denies threats or abuse. Denies injuries from another. Nutritional ha1 screening: No deficits noted. Tuberculosis screening: No symptoms or risk factors identified. 06:07 [facility] ED Fall Risk Assessment (Adult) Altered Elimination. ha1 06:12 [facility] ED Fall Risk Assessment (Adult) History of falling in the last 3 months, mt4 including since admission No falls in past 3 months (0 pts) Confusion or Disorientation No (0 pts) Intoxicated or Sedated No (0 pts) Impaired Gait Yes (1 pt) Mobility Assist Device Used No (0 pt) Altered Elimination No (0 pt) Score/Fall Risk Level 0 - 2 = Low Risk. Exposure risk/Travel Screening: None identified. Assessment: 05:48 Reassessment: conned to nasal canula 2 liters . patient's oxygen saturation 89% in room ha1 air. 06:12 General: Appears in no apparent distress. obese, Behavior is anxious. Pain: Denies mt4 pain. Neuro: Level of Consciousness is awake, alert, obeys commands, Oriented to person, place, time, situation, [employer]uring Technician are equal bilaterally Moves all extremities. Gait is steady, Speech is slurred, Facial symmetry appears normal. Cardiovascular: Capillary refill < 3 seconds. Respiratory: Reports shortness of breath Airway is patent Respiratory effort is unlabored, Respiratory pattern is tachypnea Onset: The symptoms/episode began/occurred about 2 weeks , the patient has mild shortness of breath. GI: No signs and/or symptoms were reported involving the gastrointestinal system. : No signs and/or symptoms were reported regarding the genitourinary system. Derm: Skin is intact, Skin is dry, Skin is pink, warm \T\ dry. Skin temperature is cool. Musculoskeletal: Capillary refill < 3 seconds, Range of motion: limited in all extremities. Vital Signs: 05:48 BP 194 / 95; Pulse 78; Resp 19 S; Temp 97.9(T); Pulse Ox 96% on 2 lpm NC; Weight 104.78 ha1 kg; Height 5 ft. 6 in. ; 06:12 BP 194 / 95; Pulse 81; Resp 28; Temp 98.3(O); Pulse Ox 96% on 2 lpm NC; Weight 104.78 mt4 kg; Height 5 ft. 6 in. ; Pain 0/10; 06:12 Body Mass Index 37.28 (104.78 kg, 167.64 cm) mt4 06:12 Pain Scale: Adult mt4 Vitals: 06:12 Cardiac Rhythm Assessment Regular. mt4 Giles Coma Score: 05:47 Eye Response: spontaneous(4). Motor Response: obeys commands(6). Verbal Response: sp4 oriented(5). Total: 15. 06:12 Eye Response: spontaneous(4). Motor Response: obeys commands(6). Verbal Response: mt4 oriented(5). Total: 15. ED Course: 05:45 Patient arrived in ED. sp4 05:45 Chapincito Sharp MD is Attending Physician. sp4 05:48 Arm band placed on right wrist. ha1 05:48 Patient has correct armband on for positive identification. Placed in gown. Bed in low ha1 position. Call light in reach. Side rails up X 1. 05:48 Provided Education on: PLAN OF CARE . Client placed on continuous cardiac and pulse ha1 oximetry monitoring. NIBP monitoring applied. 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 05:52 EKG completed in triage. Results shown to MD. ha1 06:04 Triage completed. ha1 06:12 Resting quietly. Awaiting lab results, Awaiting for x-ray. mt4 06:12 Door closed. Lights dimmed. Warm blanket given. Diet tray ordered. Verbal reassurance mt4 given. Head of bed elevated. Assisted to bathroom. 06:12 No provider procedures requiring assistance completed. Inserted saline lock: 20 gauge mt4 in right antecubital area, using aseptic technique. Blood collected. Flushed with 10 mL NS. Oxygen administration via nasal cannula \T\ 2L/min. 06:31 Mickie Daily, RN is Primary Nurse. mt4 06:32 XRAY Chest (1 view) In Process Unspecified. EDMS 07:03 Attending Physician role handed off by Chapincito Sharp MD ec2 07:03 Bassam Ness MD is Attending Physician. ec2 07:22 Benitez Delacruz MD is Hospitalizing Provider. ec2 Administered Medications: 06:09 Drug: Furosemide IVP 40 mg IVP once; give over 2 minutes Route: IVP; Site: right mt4 antecubital; 06:31 Follow up: Response: No adverse reaction mt4 08:30 Drug: Potassium Chloride PO 40 mEq PO once Route: PO; ph 08:30 Drug: Potassium Chloride IV 20 mEq IV at calculated rate once; administer over 1-2 ph hours Route: IV; Rate: calculated rate; Site: right antecubital; 08:30 Drug: Magnesium Sulfate IVPB 2 grams IVPB once over 2 hrs Route: IVPB; Infused Over: 2 ph hrs; Site: right antecubital; 08:30 Drug: Aspirin PO Chewable Tablet 324 mg PO once; 81 mg tablets x 4 Route: PO; ph Medication: 06:12 VIS not applicable for this client. mt4 Outcome: 07:23 Decision to Hospitalize by Provider. ec2 15:16 Patient left the ED. jb4 Signatures: Dispatcher [employer] Alexus Kaufman RN RN Toney Simmons RN RN jb4 Kerry Hartley RN RN ha1 Chapincito Sharp MD MD sp4 Bassam Ness MD MD ec2 Mickie Daily RN RN mt4 Corrections: (The following items were deleted from the chart) 09:43 09:42 Potassium Chloride PO 40 mEq PO ph ph 09:43 09:42 Potassium Chloride IV 20 mEq IV at calculated rate in right antecubital ph ph 09:43 09:43 Magnesium Sulfate IVPB 2 grams IVPB in right antecubital over 2 hrs ph ph 09:43 09:43 Aspirin PO Chewable Tablet 324 mg PO ph ph
[2024-04-27] MEDS ORDERED: NA CHLORIDE 0.9% 500 ML ONE (07:26)
[2024-04-27] MEDS ORDERED: POTASSIUM 25 MEQ EFFERV TAB ONE (07:26)
[2024-04-27] MEDS ORDERED: KCL 20 MEQ/100 mL IVPB 100 ML IV ONE (07:26)
[2024-04-27] MEDS ORDERED: ASPIRIN 81 MG CHEWABLE TABLET ONE (07:26)
[2024-04-27] MEDS ORDERED: Magnesium Sulfate 2gm IVPB 2 G/50 ML BAG IV ONE (07:27)
[2024-04-27] MEDS: ENOXAPARIN 40 MG/0.4 ML SQ SCH (11:49)
[2024-04-27] MEDS: lisinopriL 20 MG TAB PO SCH (11:49)
[2024-04-27] MEDS ORDERED: ONDANSETRON 4 MG/2 ML VIAL IV PRN (11:49)
[2024-04-27] MEDS: INSULIN REGULAR (HUMAN) 100 UNIT/ML SQ SCH (11:49)
[2024-04-27] MEDS: FUROSEMIDE 40 MG/4 ML VIAL IV SCH (11:49)
[2024-04-27] MEDS: ASPIRIN EC 81 MG TAB PO SCH (11:49)
[2024-04-27] MEDS ORDERED: ENOXAPARIN 40 MG/0.4 ML SQ ONE (12:53)
[2024-04-27] MEDS ORDERED: lisinopriL 20 MG TAB ONE (12:53)
[2024-04-27 13:30] VITALS: BMI 37.3
--- NOTE | 2024-04-27 14:04 | P.CNS ---
Date of Consult: 04/27/24 Chief Complaint: Shortness of breath History of Present Illness: Patient with PMH of Hypertension, presented with worsening SOB, ROMERO and bilateral lower extremities edema, denies chest pain, no palpitations, no syncope. Allergies No Known Allergies Allergy (Unverified 04/27/24 11:44) Home medications list reviewed: Yes Review of Systems 10-point ROS is otherwise unremarkable Physical Examination Temp Pulse Resp BP Pulse Ox 77 141/86 H 04/27/24 11:49 04/27/24 11:49 General: Alert, In no apparent distress HEENT: Atraumatic, PERRLA, Mucous membr. moist/pink, EOMI, Sclerae nonicteric Neck: Supple, 2+ carotid pulse no bruit, No LAD, Without JVD or thyroid abnormality Respiratory: Clear to auscultation bilaterally, Crackles/rales Cardiovascular: Regular rate/rhythm, Normal S1 S2, Edema (+1 BLE) Gastrointestinal: Normal bowel sounds, No tenderness Musculoskeletal: No tenderness Integumentary: No rashes Neurological: Normal gait, Normal speech, Normal tone, Normal affect Lymphatics: No axilla or inguinal lymphadenopathy Laboratory Data (last 24 hrs) 04/27/24 04/27/24 04/27/24 06:09 06:09 06:09 WBC 9.50 Hgb 8.6 L Hct 28.8 L Plt Count 372 PT 13.9 H INR 1.25 Sodium 130 L Potassium 3.3 L BUN 16 Creatinine 0.84 Glucose 194 H Magnesium 1.4 L Total Bilirubin 0.7 AST 64 H ALT 104 H Alkaline Phosphatase 100 - Problems (1) NSTEMI (non-ST elevated myocardial infarction) Current Visit: Yes Status: Acute Plan: Patient troponin is mild elevated, patient was recently seen in office and stress test done and it shows medium size anteroseptal and apical defect, Echo shows EF 40-45%, DD and elevated filling pressures ASA 81 mg daily Heparin drip ACS protocol. Lipitor 40 mg daily Coronary angiogram Tuesday. (2) Acute combined systolic and diastolic heart failure Current Visit: Yes Status: Acute Plan: Coreg 3.125 mg po BID Continue home dose lisinopril 40 mg daily Lasix 40 mg IV BID Monitor input and output and electrolytes (3) PVC (premature ventricular contraction) Current Visit: Yes Status: Acute Plan: Coreg 3.125 mg po BID
--- NOTE | 2024-04-27 14:07 | EKG ---
Test Date: 2024-04-27 Test Time: 05:57:33 Presentation Manager: JOE MEASUREMENT RESULTS: Intervals: Rate: 80 SD: 152 QRSD: 90 QT: 410 QTc: 472 [place]: P: 67 SD: 152 QRS: 67 T: 71 INTERPRETIVE STATEMENTS: Sinus rhythm with frequent premature ventricular complexes Nonspecific T wave abnormality Abnormal ECG Compared to ECG 08/08/2001 09:52:00 Ventricular premature complex(es) now present T-wave abnormality now present Electronically Signed On 04-27-24 14:06:12 CDT by Abdi Klein
--- NOTE | 2024-04-27 14:36 | ECHO ---
HEIGHT: 5 ft 6 in WEIGHT: 231 lb 0.006 oz DATE OF STUDY: 04/27/[address]: Kristofer Ceron NP 2-DIMENSIONAL: YES M.MODE: YES DOPPLER: YES COLOR FLOW: YES TDS: NO PORTABLE: YES DEFINITY: NO BUBBLE STUDY: NO DIAGNOSIS: CONGESTIVE HEART FAILURE, NSTEMI CARDIAC HISTORY: CATHERIZATION: NO SURGERY: NO PROSTHETIC VALVE: NO PACEMAKER: NO MEASUREMENTS (cm) DIASTOLIC (NORMALS) SYSTOLIC (NORMALS) IVSd 1.0 (0.6-1.2) LA Diam 3.7 (1.9-4.0) LVEF 40-45% LVIDd 5.7 (3.5-5.7) LVIDs 4.8 (2.0-3.5) %FS 15% LVPWd 1.2 (0.6-1.2) Ao Diam 2.6 (2.0-3.7) 2 DIMENSIONAL ASSESSMENT: RIGHT ATRIUM: NORMAL LEFT ATRIUM: MILDLY DILATED RIGHT VENTRICLE: NORMAL LEFT VENTRICLE: MILDLY DILATED TRICUSPID VALVE: MILD TRICUSPID REGURGITATION MITRAL VALVE: MILD MITRAL REGURGITATION PULMONIC VALVE: NORMAL AORTIC VALVE: NORMAL, TRACE AORTIC REGURGITATION PERICARDIAL EFFUSION: NONE AORTIC ROOT: NORMAL LEFT VENTRICULAR WALL MOTION: MILD GLOBAL HYPOKINESIS. DOPPLER/COLOR FLOW: GRADE II DIASTOLIC DYSFUNCTION. COMMENTS: 1. MILDLY DILATED KEFT ATRIUM. 2. MILDLY REDUCED LEFT VENTRICULAR SYSTOLIC FUNCTION. LEFT VENTRICULAR EJECTION FRACTION 40-45%. MILD GLOBAL HYPOKINESIS. 3. GRADE II DIASTOLIC DYSFUNCTION. 4. MILD MITRAL AND TRICUSPID REGURGITATION. 5. ELEVATED FILLING PRESSURE. RIGHT ATRIUM 15-20 mmHg. 6. MODERATE PULMONARY HYPERTENSION. RIGHT VENTRICULAR SYSTOLIC PRESSURE 50-55 mmHg. TECHNOLOGIST: RICK MORENO [facility]
--- NOTE | 2024-04-27 15:04 | P.HP ---
Certification for Inpatient Patient admitted to: Inpatient With expected LOS: >2 Midnights Patient will require the following post-hospital care: None Practitioner: I am a practitioner with admitting privileges, knowledge of patient current condition, hospital course, and medical plan of care. Services: Services provided to patient in accordance with Admission requirements found in Title 42 Section 412.3 of the Code of Federal Regulations Patient History Date of Service: 04/27/24 Reason for admission: NSTEMI, new onset CHF History of Present Illness: 63-year-old female with history of iron deficiency anemia, diabetes mellitus type 2, hypertension, hyperlipidemia presents to the emergency department chief complaint of shortness of breath, dyspnea on exertion, orthopnea, lower extremity edema. She reports her symptoms have been progressive over the course of the last few weeks. She does report having a stress test earlier in the week and having an echo scheduled for next week. Patient was evaluated in the emergency department labs were significant for high sensitive troponin of 256 BNP of 2265 glucose 194 sodium 130 hemoglobin 8.6 chest x-ray concerning for pulmonary edema. Patient denies any melena, hematochezia or hematemesis. Case was discussed with cardiology patient will be admitted for diuresis, echocardiogram and further evaluation by cardiology for suspected new onset CHF. Allergies No Known Allergies Allergy (Unverified 04/27/24 11:44) - Past Medical/Surgical History -: Diabetes mellitus type II -: Hypertension -: Hyperlipidemia -: Iron deficiency anemia -: Hysterectomy -: Cholecystectomy Psychosocial/ Personal History: Lives at home with family - Family History Family History: Reviewed- Non-Contributory - Social History Place of Residence: Home Review of Systems 10-point ROS is otherwise unremarkable Respiratory: Shortness of Breath, SOB with Excertion Cardiovascular: Orthopnea, Edema Physical Examination - Vital Signs Blood Pressure: 141/86 Pulse: 77 - Physical Exam General: Alert, In no apparent distress, Oriented x3 HEENT: Atraumatic, PERRLA, EOMI Neck: Supple, 2+ carotid pulse no bruit, No LAD Respiratory: Crackles/rales Cardiovascular: Regular rate/rhythm, Normal S1 S2, Edema (1+ pitting edema bilateral lower extremity) Gastrointestinal: Normal bowel sounds, No tenderness Musculoskeletal: No tenderness Integumentary: No rashes Neurological: Normal gait, Normal speech, Normal strength at 5/5 x4 extr, Normal tone, Normal affect Lymphatics: No axilla or inguinal lymphadenopathy - Studies Laboratory Data (last 24 hrs) 04/27/24 04/27/24 04/27/24 06:09 06:09 06:09 WBC 9.50 Hgb 8.6 L Hct 28.8 L Plt Count 372 PT 13.9 H INR 1.25 Sodium 130 L Potassium 3.3 L BUN 16 Creatinine 0.84 Glucose 194 H Magnesium 1.4 L Total Bilirubin 0.7 AST 64 H ALT 104 H Alkaline Phosphatase 100 Assessment and Plan - Plan Assessment: Dyspnea, suspected new onset CHFunknown EF NSTEMI Iron deficiency anemia Diabetes mellitus type 2 Hypertension Hyperlipidemia Plan: Dyspnea, suspected new onset CHFunknown EF NSTEMI Seen by cardiology who recommends diuresis, heparin drip, echo Plan for likely heart catheterization on Tuesday Troponin till peak Added Coreg, continue lisinopril Iron deficiency anemia Will obtain iron studies, monitor CBC daily Diabetes mellitus type 2 ACHS Accu-Chek, sliding scale insulin Hypertension Hyperlipidemia Continue home medications Metoprolol switched to Coreg DVT PPX: Heparin drip Code status: Full Discharge Plan: Home Plan to discharge in: Greater than 2 days - Advance Directives Does patient have a Living Will: No Does patient have a Durable POA for Healthcare: No - Code Status/Comfort Care Code Status Assessed: Yes (Full code) Critical Care: No Time Spent Managing Pts Care (In Minutes): 64
[2024-04-27] MEDS: carvediloL 3.125 MG TAB PO SCH (17:01)
[2024-04-27] MEDS: HEPARIN/D5W 25,000 UNIT/500 ML BAG IV SCH (17:34)
[2024-04-27] MEDS ORDERED: METOPROLOL TAR 25 MG TAB PO SCH (18:00)
[2024-04-27 19:12] LABS: Ferritin 10.5 ng/mL (8-252)
[2024-04-27] MEDS: ATORVASTATIN 40 MG TAB PO SCH (20:21)
[2024-04-27 22:43] LABS: Magnesium 1.5 mg/dL (1.6-2.4); Potassium 2.8 mEq/L (3.5-5.1)
[2024-04-27] MEDS: Magnesium Sulfate 2gm IVPB 2 G/50 ML BAG IV ONE (23:16)
[2024-04-27] MEDS: NA CHLORIDE 0.9% 250 ML ONE (23:16)
[2024-04-27] MEDS: POTASSIUM 25 MEQ EFFERV TAB PO ONE (23:16)
[2024-04-28] MEDS: KCL 20 MEQ/100 mL IVPB 20 MEQ/100 ML BAG IV SCH (00:19)
[2024-04-28 08:05] LABS: Absolute Eosinophils 0.2 K/uL (0-0.5); Absolute Lymphocytes (CBC) 1.8 K/uL (0.7-4.9); Absolute Monocytes 0.6 K/uL (0.1-1.3); Absolute Neutrophil 5.6 K/uL (1.8-8.0); Basophils % 0.4 % (0-1.3); Eosinophils % 2.3 % (0-4.4); Hematocrit 28.2 % (36.0-45.0); Hemoglobin 8.4 g/dL (12.0-15.0); Lymphocytes % 21.4 % (15.3-44.8); MCH 17.8 pg (27.0-35.0); MCV 59.3 fL (80-100); MPV 8.7 fL (7.6-11.3); Monocytes % 7.5 % (3.3-12.3); Neutrophils % 68.4 % (41.7-73.7); Nucleated Red Blood Cells % 0.2 % (0-0); Platelets 310 thou/uL (152-406); RBC Red Blood Cell Count 4.74 M/uL (3.86-4.86); Red Cell Distribution Width 20.9 % (12.1-15.2)
[2024-04-28 08:20] LABS: Anion Gap 7.5 mEq/L (5.0-15.0); Potassium 3.5 mEq/L (3.5-5.1)
[2024-04-28] MEDS: SOD FERRIC GLUC COMPLX/SUCROSE 125 MG in NA CHLORIDE 0.9% 100 ML IV SCH (08:33)
[2024-04-28 09:42] LABS: Anisocytosis 1+; Atypical Lymphocytes 2 %; Band Neutrophils 1 % (0-1); Blood Morphology Comment NOTED (NOT SEEN); Differential Total Cells Count 100; Eosinophils 2 % (0-3); Lymphocytes 22 % (15-42); Microcytosis 3+; Monocytes 6 % (0-10); Platelet Estimate ADEQ; Segmented Neutrophils 67 % (40-80)
[2024-04-28 09:43] LABS: Hypochromasia 2+; Ovalocytes 1+; Polychromasia SLIGHT
--- NOTE | 2024-04-28 13:19 | P.PN ---
Date of Service: 04/28/24 Subjective: Dyspnea and lower extremity swelling improved No acute events overnight ROS: 10 point ROS as noted above, otherwise negative Physical exam GEN: Alert, oriented, NAD HEENT: Normal conjunctiva, sclera anicteric CV: Regular rate and rhythm, 1+ pitting edema bilateral lower extremity Pulm: Nonlabored respirations on room air ABD: Soft, nontender, nondistended MSK: No joint tenderness Integumentary: No rashes Neuro: Normal speech, normal affect Vitals reviewed Assessment: Dyspnea, acute systolic CHF NSTEMI Iron deficiency anemia Diabetes mellitus type 2 Hypertension Hyperlipidemia Plan: Dyspnea, acute systolic CHF NSTEMI Seen by cardiology who recommends diuresis, heparin drip, echo Plan for likely heart catheterization on Tuesday Troponin peaked 260 Added Coreg, continue lisinopril continue to monitor on telemetry Iron deficiency anemia Patient with severe iron deficiency anemia also admits to donating blood every 8 weeks or so Counseled to stop donations until cleared by her PCP Started on IV iron during hospitalization Diabetes mellitus type 2 ACHS Accu-Chek, sliding scale insulin Hypertension Hyperlipidemia Continue home medications Metoprolol switched to Coreg DVT PPX: Heparin drip Code status: Full Discharge Plan: Home Plan to discharge in: Greater than 2 days Time Spent Managing Pts Care (In Minutes): 35 <Kristofer Ceron - Last Filed: 04/28/24 13:15> Patient seen and examined on rounds this morning with WAREHOUSING TECHNICIAN Osmany. I performed a substantial part of the MDM during this patient's care today as noted above in the plan of care. I agree with plan of care as noted above with the following additions / corrections: Acute HFrEF - new diagnosis, EF: 40-45%, with NSTEMI with troponin peaking at 260 Also found to have severe iron deficiency anemia Cardiology consulted Continue heparin drip with tentative plans for cardiac catheterization on Tuesday Continue diuresis Patient reports feeling better Severe iron deficiency anemia, IV iron ordered Monitor for any worsening signs of volume overload <Benitez Delacruz - Last Filed: 04/28/24 14:38>
[2024-04-28] MEDS: POTASSIUM 25 MEQ EFFERV TAB PO ONE (15:04)
[2024-04-29 01:20] LABS: Anion Gap 6.2 mEq/L (5.0-15.0); Magnesium 1.7 mg/dL (1.6-2.4); Potassium 3.2 mEq/L (3.5-5.1)
[2024-04-29] MEDS: MAGNESIUM SULFATE 1 gm IVPB 1 GM/100 ML BAG IV ONE (01:50)
[2024-04-29] MEDS: POTASSIUM 25 MEQ EFFERV TAB PO ONE (01:50)
[2024-04-29 04:53] LABS: Absolute Eosinophils 0.2 K/uL (0-0.5); Absolute Lymphocytes (CBC) 1.6 K/uL (0.7-4.9); Absolute Monocytes 0.6 K/uL (0.1-1.3); Absolute Neutrophil 5.4 K/uL (1.8-8.0); Basophils % 0.6 % (0-1.3); Eosinophils % 2.3 % (0-4.4); Hematocrit 27.1 % (36.0-45.0); Hemoglobin 8.3 g/dL (12.0-15.0); Lymphocytes % 20.8 % (15.3-44.8); MCH 18.2 pg (27.0-35.0); MCHC 30.5 g/dL (32.0-36.0); MCV 59.6 fL (80-100); Monocytes % 8.1 % (3.3-12.3); Neutrophils % 68.2 % (41.7-73.7); Nucleated Red Blood Cells % 0.1 % (0-0); Platelets 350 thou/uL (152-406); RBC Red Blood Cell Count 4.55 M/uL (3.86-4.86); Red Cell Distribution Width 20.6 % (12.1-15.2)
--- NOTE | 2024-04-29 12:35 | P.PN ---
Subjective Date of Service: 04/29/24 Chief Complaint: NSTEMI, new onset CHF Subjective: No new changes, No C/O voiced, Tolerating diet, Ambulating, Improving Review of Systems 10-point ROS is otherwise unremarkable Physical Examination - Vital Signs Temperature: 97.2 F Blood Pressure: 159/76 Pulse: 72 Respirations: 14 Pulse Ox (%): 99 - Physical Exam General: Alert, In no apparent distress HEENT: Atraumatic, PERRLA, EOMI Neck: Supple, JVD not distended Respiratory: Clear to auscultation bilaterally, Normal air movement Cardiovascular: Regular rate/rhythm, Normal S1 S2 Gastrointestinal: Normal bowel sounds, No tenderness Musculoskeletal: No tenderness Integumentary: No rashes Neurological: Normal speech, Normal tone, Normal affect Lymphatics: No axilla or inguinal lymphadenopathy - Studies Medications List Reviewed: Yes Assessment And Plan - Current Problems (Diagnosis) (1) NSTEMI (non-ST elevated myocardial infarction) Current Visit: Yes Status: Acute Plan: Patient troponin is mild elevated, patient was recently seen in office and stress test done and it shows medium size anteroseptal and apical defect, Echo shows EF 40-45%, DD and elevated filling pressures ASA 81 mg daily Heparin drip ACS protocol. Lipitor 40 mg daily NPO after midnight for Coronary angiogram in am. (2) Acute combined systolic and diastolic heart failure Current Visit: Yes Status: Acute Plan: switch coreg to Toprol XL 25 mg daily (due to PVCs) Continue home dose lisinopril 40 mg daily add Aldactone 25 mg daily Lasix 40 mg IV BID Monitor input and output and electrolytes (3) PVC (premature ventricular contraction) Current Visit: Yes Status: Acute Plan: switch coreg to Toprol XL 25 mg daily
[2024-04-29] MEDS: SPIRONOLACTONE 25 MG TABLET PO SCH (20:38)
[2024-04-29] MEDS: METOPROLOL XL 25 MG TAB PO SCH (20:39)
[2024-04-30 04:47] LABS: Absolute Basophils 0.1 K/uL (0-0.5); Absolute Eosinophils 0.3 K/uL (0-0.5); Absolute Lymphocytes (CBC) 2.3 K/uL (0.7-4.9); Absolute Monocytes 0.6 K/uL (0.1-1.3); Absolute Neutrophil 4.9 K/uL (1.8-8.0); Basophils % 1.6 % (0-1.3); Eosinophils % 3.1 % (0-4.4); Hematocrit 29.2 % (36.0-45.0); MCH 18.1 pg (27.0-35.0); MCHC 30.7 g/dL (32.0-36.0); MPV 8.8 fL (7.6-11.3); Monocytes % 7.5 % (3.3-12.3); Neutrophils % 59.8 % (41.7-73.7); Nucleated Red Blood Cells % 0.1 % (0-0); Platelets 381 thou/uL (152-406); RBC Red Blood Cell Count 4.94 M/uL (3.86-4.86); Red Cell Distribution Width 20.8 % (12.1-15.2)
[2024-04-30 04:48] LABS: MCV 59.1 fL (80-100)
[2024-04-30 05:03] LABS: Anion Gap 7.8 mEq/L (5.0-15.0); Magnesium 1.7 mg/dL (1.6-2.4); Potassium 3.8 mEq/L (3.5-5.1)
[2024-04-30] MEDS: MAGNESIUM SULFATE 1 gm IVPB 1 GM/100 ML BAG IV ONE (06:38)
[2024-04-30] MEDS ORDERED: HEPA 1000U/500MLS 2,000 UNIT/1,000 ML BAG IV ONE (08:33)
[2024-04-30] MEDS ORDERED: LIDOCAINE 1% 20 ML MDV ONE (08:33)
[2024-04-30] MEDS ORDERED: HEPARIN 10,000 UNIT/10 ML VIAL IV ONE (08:33)
[2024-04-30] MEDS ORDERED: ATROPINE SULF 1 MG/10 ML SYR IV ONE (08:33)
[2024-04-30] MEDS ORDERED: TICAGRELOR 90 MG TABLET PO ONE (08:34)
[2024-04-30] MEDS ORDERED: CLOPIDOGREL 75 MG TABLET ONE (08:34)
[2024-04-30] MEDS ORDERED: HEPARIN 5000 UNIT/ML 1 ML VIAL ONE (08:34)
[2024-04-30] MEDS ORDERED: ASPIRIN 325 MG TAB ONE (08:34)
[2024-04-30] MEDS ORDERED: FENTANYL CITR 100 MCG/2 ML ONE (08:52)
[2024-04-30] MEDS ORDERED: MIDAZOLAM HCL 2 MG/2 ML INJ ONE (08:52)
[2024-04-30] MEDS ORDERED: NA CHLORIDE 0.9% 500 ML ONE (09:01)
--- NOTE | 2024-04-30 10:35 | P.PN ---
Subjective Date of Service: 04/30/24 Chief Complaint: NSTEMI, new onset CHF Subjective: No new changes, No C/O voiced, Tolerating diet, Ambulating, Improving Review of Systems 10-point ROS is otherwise unremarkable Physical Examination - Vital Signs Temperature: 97.8 F Blood Pressure: 167/72 Pulse: 76 Respirations: 17 Pulse Ox (%): 98 - Physical Exam General: Alert, In no apparent distress HEENT: Atraumatic, PERRLA, EOMI Neck: Supple, JVD not distended Respiratory: Clear to auscultation bilaterally, Normal air movement Cardiovascular: Regular rate/rhythm, Normal S1 S2 Gastrointestinal: Normal bowel sounds, No tenderness Musculoskeletal: No tenderness Integumentary: No rashes Neurological: Normal speech, Normal tone, Normal affect Lymphatics: No axilla or inguinal lymphadenopathy - Studies Medications List Reviewed: Yes Assessment And Plan - Current Problems (Diagnosis) (1) NSTEMI (non-ST elevated myocardial infarction) Current Visit: Yes Status: Acute Plan: Patient troponin is mild elevated, patient was recently seen in office and stress test done and it shows medium size anteroseptal and apical defect, Echo shows EF 40-45%, DD and elevated filling pressures Coronary angiogram done and shows normal coronaries, so wall motions abnormalities most likely secondary to frequent PVCs ASA 81 mg daily Lipitor 40 mg daily (2) Acute combined systolic and diastolic heart failure Current Visit: Yes Status: Acute Plan: continue Toprol XL 25 mg daily (due to PVCs) Continue home dose lisinopril 40 mg daily Aldactone 25 mg daily switch lasix to 40 mg daily outpatient follow up with cardiology Monitor input and output and electrolytes (3) PVC (premature ventricular contraction) Current Visit: Yes Status: Acute Plan: Toprol XL 25 mg daily
[2024-04-30 11:17] VITALS: O2SAT 96
[2024-04-30 12:48] LABS: PT Prothrombin Time 11.3 SECONDS (9.4-12.5); PTT, Activated Partial Thromb 27.7 SECONDS (24.3-36.9); Protime INR 1.01
--- NOTE | 2024-04-30 13:11 | P.DS ---
Admission Date: 04/27/24 Discharge Date: 04/30/24 Disposition: ROUTINE DISCHARGE Discharge Condition: GOOD Reason for Admission: NSTEMI, new onset CHF Consultations: Cardiology-Dr. Klein Brief History of Present Illness: 63-year-old female with history of iron deficiency anemia, diabetes mellitus type 2, hypertension, hyperlipidemia presents to the emergency department chief complaint of shortness of breath, dyspnea on exertion, orthopnea, lower extremity edema. She reports her symptoms have been progressive over the course of the last few weeks. She does report having a stress test earlier in the week and having an echo scheduled for next week. Patient was evaluated in the emergency department labs were significant for high sensitive troponin of 256 BNP of 2265 glucose 194 sodium 130 hemoglobin 8.6 chest x-ray concerning for pulmonary edema. Patient denies any melena, hematochezia or hematemesis. Case was discussed with cardiology patient will be admitted for diuresis, echocardiogram and further evaluation by cardiology for suspected new onset CHF. Hospital Course: Assessment: Dyspnea, acute systolic CHF NSTEMI Iron deficiency anemia Diabetes mellitus type 2 Hypertension Hyperlipidemia Patient was admitted to the hospital for NSTEMI, suspected new onset CHF. Her initial high-sensitivity troponin was 256, peaked at 268.3. On admission her BNP was also elevated at 2265 and chest x-ray showed mild CHF pattern. She was admitted to the hospital placed on a heparin drip, diuresed with IV Lasix and her medications were adjusted. She diuresed well. Echocardiogram was also performed on 04/27 which showed LVEF of 40 to 45% with mild global hypokinesis, grade 2 diastolic dysfunction, moderate pulmonary hyper tension. 04/30 patient underwent coronary angiogram and was found to have normal coronaries. She is also noted to have iron deficiency anemia, hemoglobin was around 9 her iron level was 17 with a TSAT of 3.5. During her hospitalization she was given IV iron and counseled to avoid blood transfusion until otherwise instructed by her PCP. She will need to take oral iron going forward. She will be sent the following new prescriptions to her pharmacy [facility] in [place]: Toprol XL 25 mg daily stop taking the metoprolol tartrate which you previously prescribed- Spironolactone 25 mg daily Lasix 40 mg daily The following medications [id number]: Supplementation daily baby aspirin 81 mg Stop taking the following medications Metoprolol tartrate Hydrochlorothiazide Please follow-up with your primary care doctor in 1 week Please also follow-up with cardiologyDr. Klein in 1 to 2 weeks Vital Signs/Physical Exam: Temp Pulse Resp BP Pulse Ox 97.8 F 66 16 159/70 H 98 04/30/24 10:35 04/30/24 11:30 04/30/24 11:30 04/30/24 11:30 04/30/24 10:35 General: Alert, In no apparent distress, Oriented x3 HEENT: Atraumatic, PERRLA, EOMI Neck: Supple, JVD not distended Respiratory: Clear to auscultation bilaterally, Normal air movement Cardiovascular: Regular rate/rhythm, Normal S1 S2 Gastrointestinal: Normal bowel sounds, No tenderness Musculoskeletal: No tenderness Integumentary: No rashes Neurological: Normal speech, Normal tone Laboratory Data at Discharge: WBC 8.30 thou/uL (4.3-10.9) 04/30/24 04:04 Hgb 9.0 g/dL (12.0-15.0) L D 04/30/24 04:04 Hct 29.2 % (36.0-45.0) L 04/30/24 04:04 Plt Count 381 thou/uL (152-406) 04/30/24 04:04 PT 11.3 SECONDS (9.4-12.5) 04/30/24 12:18 INR 1.01 04/30/24 12:18 APTT 27.7 SECONDS (24.3-36.9) 04/30/24 12:18 Sodium 133 mEq/L (136-145) L 04/30/24 04:04 Potassium 3.8 mEq/L (3.5-5.1) 04/30/24 04:04 BUN 18 mg/dL (7-18) 04/30/24 04:04 Creatinine 0.87 mg/dL (0.55-1.02) 04/30/24 04:04 Glucose 199 mg/dL (74-106) H 04/30/24 04:04 Magnesium 1.7 mg/dL (1.6-2.4) 04/30/24 04:04 Total Bilirubin 0.7 mg/dL (0.2-1.0) 04/27/24 06:09 AST 64 U/L (15-37) H 04/27/24 06:09 ALT 104 U/L (13-56) H 04/27/24 06:09 Alkaline Phosphatase 100 U/L (45-117) 04/27/24 06:09 Home Medications: Atorvastatin Calcium 40 mg PO BEDTIME 04/27/24 Insulin Degludec [Tresiba] 0.5 ml SQ DAILY 04/27/24 Semaglutide [Ozempic] 1 mg SQ EVERY 7TH DAY 04/27/24 Sitagliptin Phos/Metformin HCl [Janumet 50-1,000 mg Tablet] 50 - 1,000 mg PO BID 04/27/24 lisinopriL [Lisinopril] 40 mg PO DAILY 04/27/24 Cyanocobalamin (Vitamin B-12) [Cyanocobalamin Injection] 1,000 mcg IJ DIRECTED 04/28/24 Furosemide [Lasix] 40 mg PO DAILY #30 tab 04/30/24 Metoprolol Succinate [Toprol Xl*] 25 mg PO DAILY #30 tab 04/30/24 Spironolactone [Aldactone*] 25 mg PO DAILY #30 tab 04/30/24 New Medications: Spironolactone [Aldactone*] 25 mg PO DAILY #30 tab Furosemide [Lasix] 40 mg PO DAILY #30 tab Metoprolol Succinate [Toprol Xl*] 25 mg PO DAILY #30 tab Physician Discharge Instructions: Patient was admitted to the hospital for NSTEMI, suspected new onset CHF. Her initial high-sensitivity troponin was 256, peaked at 268.3. On admission her BNP was also elevated at 2265 and chest x-ray showed mild CHF pattern. She was admitted to the hospital placed on a heparin drip, diuresed with IV Lasix and her medications were adjusted. She diuresed well. Echocardiogram was also performed on 04/27 which showed LVEF of 40 to 45% with mild global hypokinesis, grade 2 diastolic dysfunction, moderate pulmonary hypertension. 04/30 patient underwent coronary angiogram and was found to have normal coronaries. She is also noted to have iron deficiency anemia, hemoglobin was around 9 her iron level was 17 with a TSAT of 3.5. During her hospitalization she was given IV iron and counseled to avoid blood transfusion until otherwise instructed by her PCP. She will need to take oral iron going forward. She will be sent the following new prescriptions to her pharmacy [facility] in [place]: Toprol XL 25 mg daily stop taking the metoprolol tartrate which you previously prescribed- Spironolactone 25 mg daily Lasix 40 mg daily The following medications [id number]: Supplementation daily baby aspirin 81 mg Stop taking the following medications Metoprolol tartrate Hydrochlorothiazide Please follow-up with your primary care doctor in 1 week Please also follow-up with cardiologyDr. Latoya in 1 to 2 weeks Diet: AHA Activity: Ad meri Followup: Abdi Klein MD [ACTIVE - CAN ADMIT] - 1-2 Weeks Anibal Yap MD [Primary Care Provider] - 1 Week Time spent managing pt's care (in minutes): 47
[2024-04-30] MEDS: POTASSIUM CL SA 10 MEQ TAB PO ONE (13:19)
[2024-04-30 13:58] VITALS: BP 159/80; TEMP 98.1
== END 2024-04-30 13:32 | disposition home or self-care (01) | DRG 280 ==
LOC: ER 05:35 → ERHOLD 07:35 → 2ND 15:57
PROVIDERS: ADMIT Hospitalist; ATTEND Hospitalist
DX: I11.0 Hypertensive heart disease with heart failure (principal); I50.21 Acute systolic (congestive) heart failure; I21.4 Non-ST elevation (NSTEMI) myocardial infarction; E11.9 Type 2 diabetes mellitus without complications; E78.5 Hyperlipidemia, unspecified; D50.9 Iron deficiency anemia, unspecified; I27.20 Pulmonary hypertension, unspecified; Z79.4 Long term (current) use of insulin; Z79.899 Other long term (current) drug therapy
CPT/HCPCS: 36415; 71045; 76937; 80048; 80076; 81001; 82728; 82947; 83540; 83735; 83880; 84132; 84439; 84443; 84466; 84484; 85025; 85610; 85730; 93005; 93306; 93458; 99152; 99153; C1893; J0461; J1644; J1650; J1940; J2001; J2250; J2916; J3010; J3475; J3480; J7040; J7050; Q9966